=== PATIENT | female | born 1995 | race African-American/Black ===

== ENCOUNTER 2025-02-12 14:11 | Outpatient (CLI) | payer BC, SELFPAY | END 2025-02-12 14:12 | disposition home or self-care (01) | PROVIDERS: Visit Provider Registered Nurse | DX: Z34.91 Encounter for supervision of normal pregnancy, unspecified, first trimester (principal); O20.9 Hemorrhage in early pregnancy, unspecified; Z3A.12 12 weeks gestation of pregnancy | CPT/HCPCS: 87086; 87491; 87591 ==

== ENCOUNTER 2025-02-12 14:55 | Outpatient (CLI) | payer BC, SELFPAY ==
--- NOTE | 2025-02-12 14:45 | CRLHL7_ITS ---
For Patients: As a result of the Cures Act, medical imaging exams and procedure reports are released immediately into your electronic medical record. You may view this report before your referring provider. If you have questions, please contact your health care provider. OB ULTRASOUND INDICATION: Dating and viability. TECHNIQUE: Real time grayscale imaging of the fetus was performed. Transabdominal. LMP: 11/23/2024. BETTINA by LMP: 08/30/2025. GA: 11 w, 4 d. Previous US: No. CRL: 5.3 cm. 12 w 0 d. BETTINA: 08/27/2025. FHR: 169 BPM. Gestational sac: 5.5 cm. Appears within normal limits. Yolk sac: 5.0 mm. Appears within normal limits. Right ovary: 3.3 x 1.8 x 2.2 cm. Left ovary: 4.1 x 2.3 x 2.6 cm. CL. IMPRESSION: 1. Single living intrauterine measuring 12 weeks 0 days and sonographic due date 08/27/2025. 2. Subchorionic hemorrhage measures 2.1 x 1.8 x 1.7 cm. John Little M.D. Diagnostic Radiologist [email or web address] silva/Dictated by: John Little MD @ 02/15/2025 9:15:00 AM (Electronically Signed)
== END 2025-02-12 14:56 | disposition home or self-care (01) ==
LOC: US 14:55
PROVIDERS: Visit Provider Registered Nurse
DX: Z34.91 Encounter for supervision of normal pregnancy, unspecified, first trimester (principal); O20.9 Hemorrhage in early pregnancy, unspecified; Z3A.11 11 weeks gestation of pregnancy
CPT/HCPCS: 76801

== ENCOUNTER 2025-03-11 13:40 | Outpatient (CLI) | payer BC, SELFPAY | END 2025-03-11 13:41 | disposition home or self-care (01) | PROVIDERS: Visit Provider Midwife | DX: O09.92 Supervision of high risk pregnancy, unspecified, second trimester (principal); Z86.718 Personal history of other venous thrombosis and embolism; Z3A.15 15 weeks gestation of pregnancy | CPT/HCPCS: 81240; 81241; 81511; 83090; 85300; 85302; 85303; 85306; 85610; 86146; 86147 ==

== ENCOUNTER 2025-03-14 15:36 | Emergency (ER) | payer BC, SELFPAY ==
[2025-03-14 15:43] VITALS: BP 111/77; PULSE 82; RESP 16; TEMP 36.4; O2SAT 98; BMI 35.8
--- NOTE | 2025-03-14 16:13 | ED.GENADULT ---
HPI - General Adult General Date Seen: 03/14/25 Chief complaint: Vaginal Bleeding Stated complaint: vaginal bleeding () Time Seen by Provider: 03/14/25 16:12 History of Present Illness HPI narrative: 29-year-old female who has a history of pulmonary embolism after breast reduction surgery, also history of depression, endometriosis, PCOS, ovarian cysts, she was seen earlier this week by the nurse midwives for care on 03/11. According to those records she has a history of a single provoked venous thromboembolism and ACOG guidelines giverecommendation for surveillance without anticoagulation during her . It sounds like she is not on anticoagulation. She was given referral to heme Onc. Labs showed: blood type A+. INR 0.86. She had an ultrasound done had obstetrics, gynecology and infertility in a [facility] on 01/28/2025 that showed a single intrauterine with heart rate of 176. right ovary was polycystic. She had had care initially any [facility] but this was conceived naturally without IVF. She had all the routine care a couple months ago was negative for this vaginal infections and STDs. Her has been progressing normally. She and her had intercourse afternoon after intercourse she began having vaginal bleeding. She had bright red liquid blood without clots that probably total about few tbsp but hard to tell for sure. Still ongoing light vaginal bleeding. no purulent bleeding. No brown bleeding. No clots. She is not lightheaded. No fainting. Some mild pelvic cramping but not really worse than her normal round ligament pain. No fever. Urination normal. Bowel movements normal. She has a history of PE in the past after her breast surgery, and is not on any long-term anticoagulation. No chest pain, shortness of breath. Related Data Home Medications ?Medication ?Instructions ?Recorded ?Confirmed arginine 1,000 mg-B12 16.6 tab PO 02/12/25 03/11/25 mcg-folic acid 66.6 mcg-B6 3.3 mg tablet docosahexaenoic acid 200 mg mg PO 02/12/25 03/11/25 capsule ( DHA) Allergies Allergy/AdvReac Type Severity Reaction Status Date / Time house dust mite Allergy Mild Nasal Verified 03/14/25 15:42 Discharge enoxaparin (From Lovenox) Allergy Verified 03/14/25 15:42 tree nuts Allergy Mild hives Uncoded 03/11/25 13:28 [facility] Medical History (Updated 03/14/25 @ 19:27 by Dudley Fierro MD) Infertility PCOS (polycystic ovarian syndrome) ?E28.2 - Polycystic ovarian syndrome (ICD-10) History of venous thromboembolism ?Z86.718 - Personal history of other venous thrombosis and embolism (ICD-10) Depression ?F32.A - Depression, unspecified (ICD-10) Endometriosis ?N80.9 - Endometriosis, unspecified (ICD-10) Chlamydia ?A74.9 - Chlamydial infection, unspecified (ICD-10) Dyspareunia Ovarian cyst ?N83.209 - Unspecified ovarian cyst, unspecified side (ICD-10) Surgical History History of laparoscopy ?Z98.890 - Other specified postprocedural states (ICD-10) Status post breast reduction ?Z98.890 - Other specified postprocedural states (ICD-10) Family History Other Breast cancer Endometriosis Infertility Social History Smoking Status: Never smoker How often do you have a drink containing alcohol: never AUDIT-C Alcohol total score: 0 Non-prescribed substance use: denies use Exam Narrative: Exam Narrative: Constitutional: Appears well-developed and well-nourished. Alert. Conversant. Very pleasant. to tentatively at her side. Non toxic. HENT: Head: Atraumatic. Nose: Nose normal. Mouth/Throat: Oral mucosa is clear and moist. no trismus. Pharynx normal. Tonsils symmetric. No tonsillar enlargement, erythema, or exudate. Eyes: Conjunctivae normal. EOM normal. Pupils equal, round, and reactive to light. No scleral icterus. Neck: Normal range of motion. Neck supple. No tracheal deviation present. Cardiovascular: Normal rate, regular rhythm. No gallop. No friction rub. No murmur heard. Symmetric radial artery pulses Pulmonary/Chest: Effort normal. No stridor. No respiratory distress. No wheezes. No rales. No rhonchi . No tenderness. Abdominal: Soft. Bowel sounds normal. No distension. you had his uterus is enlarged with the fundus palpable just below the umbilicus consistent with her 16 week gestation. Uterus is nontender. Mild suprapubic and bilateral lower quadrant tenderness. No rebound. No guarding. No CVA tenderness Musculoskeletal: RUE: Normal range of motion. No tenderness. No deformity LUE: Normal range of motion. No tenderness. No deformity RLE: Normal range of motion. No edema. No tenderness. No deformity LLE: Normal range of motion. No edema. No tenderness. No deformity Neurological: Alert and oriented to person, place, and time. Normal strength. CN II-VII intact. No sensory deficit. GCS eye subscore is 4. GCS verbal subscore is 5. GCS motor subscore is 6. Normal coordination Skin: Skin is warm and dry. No rash noted. No pallor. Normal capillary refill. Psychiatric: Normal mood. Normal affect. Const: Vital Signs, click to edit/add: Vital Signs - 24 hr 03/14/25 15:43 03/14/25 18:01 Temperature 97.6 F 98.5 F Pulse Rate [Pulse Oximeter] 82 68 Respiratory Rate 16 18 Blood Pressure [Ri t Upper Arm] 111/77 99/72 Pulse Oximetry 98 99 Oxygen Delivery Me thod Room Air Room Air Course Vital Signs Vital signs: Initial Vital Signs Temperature 97.6 F 03/14/25 15:43 Temperature Source Temporal Artery Scan 03/14/25 15:43 Pulse Rate 82 03/14/25 15:43 Respiratory Rate 16 03/14/25 15:43 Blood Pressure 111/77 03/14/25 15:43 Blood Pressure Mean 88 03/14/25 15:43 Pulse Oximetry 98 03/14/25 15:43 Oxygen Delivery Method Room Air 03/14/25 15:43 Vital Signs Temperature 97.6 F 03/14/25 15:43 Pulse Rate 82 03/14/25 15:43 Respiratory Rate 16 03/14/25 15:43 Blood Pressure 111/77 03/14/25 15:43 Pulse Oximetry 98 03/14/25 15:43 Oxygen Delivery Method Room Air 03/14/25 15:43 Temperature 98.5 F 03/14/25 18:01 Pulse Rate 68 03/14/25 18:01 Respiratory Rate 18 03/14/25 18:01 Blood Pressure 99/72 03/14/25 18:01 Pulse Oximetry 99 03/14/25 18:01 Oxygen Delivery Method Room Air 03/14/25 18:01 Medical Decision Making MDM Narrative Medical decision making narrative: This female patient presents for evaluation of vaginal bleeding that began this afternoon after intercourse. She has a known 16 week IUP. This was conceived naturally without the use of IVF. Very low risk for heterotopic . She does have some mild lower pain but she has attributed that to her baseline abdominal pain due to being .. I considered a broad differential including ectopic , ovarian cyst, UTI, pyelonephritis, subchorionic hemorrhage, uterine bleeding, active miscarriage, constipation, etc. Non gynecologic causes considered included , appendicitis, cholecystitis, volvulus, intraabdominal abscess, among others. In this patient, there are no signs of serious etiologies of abdominal pain. At this point and on the think she needs further workup with CT or MRI The patient's primary concern was not her abdominal pain but rather the bleeding that started this afternoon. The workup here suggests threatened miscarriage. At this point we have a viable IUP with a normal heart rate appropriate for dates. There is not a subchorionic hemorrhage. At this point, patient is hemodynamically stable, hemoglobin is reassuring, and bleeding is not predicted to become life threatening. Differential here would also include cervical bleeding because of intercourse or possible vaginal laceration. Patient her deny any pain with the intercourse or high risk for vaginal trauma. The patient is eager to get home because she has to care for her other children. Therefore will hold off on pelvic exam here in the ER. Plan is home, close follow-up with OB, threatened miscarriage precautions, and return to ED for worsening pain, heavy vaginal bleeding (more than 1 pad soaked every hour). She will follow-up with her OB team for recheck within 1-2 days. Return precautions reviewed. Questions were answered. Lab Data Labs: Lab Results 03/14/25 Range/Units 16:33 WBC 6.41 (4.50-11.00) K/uL RBC 3.82 L (4.00-5.20) m/uL Hgb 10.8 L (12.0-16.0) gm/dL Hct 32.8 L (33.0-51.0) % MCV 86 (80-100) fL MCH 28 (26-34) pg MCHC 33 (32-36) gm/dL RDW Coeff of Carla 14.3 (11.5-15.5) % Plt Count 205 (140-440) K/uL Neut % (Auto) 69.8 (42.0-72.0) % Lymph % (Auto) 19.3 L (20-44) % [place] % (Auto) 9.2 (0.0-11.0) % Eos % (Auto) 0.6 (0.0-7.0) % Baso % (Auto) 0.2 (0.0-3.0) % Neut # (Auto) 4.47 (1.7-7.0) K/uL Lymph # (Auto) 1.20 (0.90-2.90) K/uL [place] # (Auto) 0.60 (0.00-0.90) K/UL Eos # (Auto) 0.04 (0.00-0.50) K/uL Baso # (Auto) 0.01 (0.00-0.30) K/uL Abs Immat Gran (auto) 0.06 (0.00-0.30) K/uL Imm/Tot Granulo (auto) 0.9 % HCG, Quant 57452.00 mIU/mL Imaging Data US pelvis: Attestation: I have reviewed the pertinent imaging results. Radiologist's impression: IMPRESSION: 1. Single living intrauterine gestation in variable position with heart rate 145 beats per minute. 2. Anterior placenta without evidence of previa or abruption. The cervix is closed. Discharge Plan Discharge Clinical Impression: , threatened Patient Disposition: Home, Self-Care Condition: Stable Instructions: Threatened Miscarriage (ED) Additional Instructions: As we discussed, so far your blood tests and your pelvic ultrasound look good. However this bleeding still raises the threat of a miscarriage. Monitor symptoms carefully. If you have worsening bleeding or worsening pelvic cramping, lightheadedness, fever, or in any worsening symptoms, please contact your OB team or return to the ER immediately. Even if your bleeding stops and you are getting better, please recheck with your OB team in the next 1-3 days. Prescriptions: No Action DHA 200 mg capsule PO [id number] [id number] 1,000 mg-16.6 mcg-66.6 mcg tablet PO Follow Up/Referrals: Provider,Not a Local [Primary Care Provider] - Stand Alone Forms: MyHealth Info Instructions
--- NOTE | 2025-03-14 16:25 | CRLHL7_ITS ---
For Patients: As a result of the Century Cures Act, medical imaging exams and procedure reports are released immediately into your electronic medical record. You may view this report before your referring provider. If you have questions, please contact your health care provider. INDICATION: Vaginal bleeding after intercourse 16 week . COMPARISON: OB ultrasound 02/12/2025. TECHNIQUE: Ultrasound OB pelvis limited transabdominal with real time grayscale imaging and color Doppler analysis. FINDINGS: Sonographic imaging demonstrates a single living intrauterine gestation. The fetus has a regular cardiac rate of 145 beats per minute. The fetus has a variable orientation. The placenta lies anteriorly without evidence of placenta previa or abruption. The inferior placental edge is located 4.4 cm from the internal cervical os. The cervix is closed and measures 4.5 cm in length. Amniotic fluid volume appears normal with deepest pocket measuring 4.8 cm. IMPRESSION: 1. Single living intrauterine gestation in variable position with heart rate 145 beats per minute. 2. Anterior placenta without evidence of previa or abruption. The cervix is closed. Dictated by Noelle Perez MD @ 03/14/2025 7:19:22 PM (Electronically Signed)
[2025-03-14 16:42] LABS: Basophils Absolute Auto 0.01 K/uL (0.00-0.30); Basophils Percent Auto 0.2 % (0.0-3.0); Eosinophils Absolute Auto 0.04 K/uL (0.00-0.50); Eosinophils Percent Auto 0.6 % (0.0-7.0); Hematocrit 32.8 % (33.0-51.0); Hemoglobin* 10.8 gm/dL (12.0-16.0); Immature Granulocytes Abs Auto 0.06 K/uL (0.00-0.30); Immature Granulocytes Pct Auto 0.9 %; Lymphocytes Percent Auto 19.3 % (20-44); Mean Corpuscular HGB Conc 33 gm/dL (32-36); Mean Corpuscular Hemoglobin 28 pg (26-34); Mean Corpuscular Volume 86 fL (80-100); Monocytes Percent Auto 9.2 % (0.0-11.0); Neutrophils Absolute Auto 4.47 K/uL (1.7-7.0); Neutrophils Percent Auto 69.8 % (42.0-72.0); Platelet Count* 205 K/uL (140-440); RDW Coefficient of Variation % 14.3 % (11.5-15.5); Red Blood Count 3.82 m/uL (4.00-5.20); White Blood Count* 6.41 K/uL (4.50-11.00)
[2025-03-14 16:45] LABS: Slide Review Reflex No
--- OUTSIDE RECORDS SUMMARY | 2025-03-14 17:57 | XMS_ITS | Clinical Summary ---
Author Organization [facility] Address [address] [place] [address] Care Team Providers Care Exercise Rider Name Role Phone Maria Del Carmen Whitt APRN C.N.P. Primary Care Provide r Source Comments Patient records contain information from all sites at [facility]. For routine questions regarding patient records, call [phone] during business hours, M-F 8:00 AM - 5:00 PM Central Time. Record requests for emergency care only can be directed to [phone] at any time.[facility] Allergies Active Allergy Reactions Criticality Noted Date Comments Enoxaparin Hives (Reselect Reaction) High 10/24/2020 Itching and urticaria spreading from injection sites House Dust Mite Itching 12/05/2011 Peanut Itching 12/05/2011 Medications * This document contains information received from the source organization and may not represent a complete record from that organization. dextroamphetamin e-amphetamine (ADDERALL) 30 mg tablet Take 30 mg by mouth 2 (two) times a day. 1 Active aspirin-acetamin ophen-caffeine (EXCEDRIN MIGRAINE) 250-250-65 mg per tablet Take 2 tablets by mouth every 6 (six) hours as needed for pain. Active letrozole (Femara) 2.5 mg tablet 4 Active albuterol 90 mcg/actuation inhalerIndicatio ns:Asthma Mild Intermittent (HCC) Inhale 2 puffs every 4 (four) hours as needed for wheezing. 18 g 2 08/30/202 4 Active tirzepatide (Zepbound) 2.5 mg/0.5 mL injection penIndications:M orbid Obesity Body Mass Index 40.0-44.9 Adult (HCC) Inject 2.5 mg under the skin every 7 (seven) days. 2 mL 4 Active Additional Information Patient not taking.Reported on 02/05/2025 buPROPion XL (Wellbutrin XL) 150 mg 24 hr tabletIndication s:Morbid Obesity Body Mass Index 40.0-44.9 Adult (HCC) Take 1 tablet (150 mg total) by mouth every morning. 90 tablet 3 4 Active Additional Information Patient not taking.Reported on 02/05/2025 sertraline (Zoloft) 50 mg tablet Take 50 mg by mouth daily. Active Active Problems Problem Noted Date Diagnosed Date Asthma Mild Intermittent 09/22/2024 Polycystic Ovary Syndrome 06/21/2020 Depressive Disorder 06/21/2020 Migraine Headache 02/27/2012 Attention Deficit Hyperactive Disorder 6 Comments Yes Resolved Problems Problem Noted Date Diagnosed Date Resolved Date Morbid Obesity Body Mass Ind ex 40.0-44.9 Adult 06/13/2022 03/12/2024 Scleroderma 09/13/2000 03/12/2024 Encounters * This document contains information received from the source organization and may not represent a complete record from that organization. Date Type Department Care Team Description 02/05/2025 2:00 PM CDT Office Visit Department of Family Medicine, [facility], in [address] [phone] Gregg Garibay P.A.-C. Paronychia Finger Right (Primary Dx) 01/26/2025 2:02 PM CDT - 01/26/2025 11:59 PM CDT Hospital Encounter Department of Laboratory Medicine in [address] [phone] Leanne Vasquez M.D. Encounter For Supervision Of Normal Unspecified Trimester (HCC) Discharge Disposition: Home or Self Care from Last 3 Months Immunizations Immunization Administration Dates Next Due 4vHPV (discontinued) 01/12/2009,09/07/2008,07/07 DTP / Hib 1995,1995 DTaP (Infanrix, Tripedia) 04/25/2000,12/1996,1995,1994 HepA Pediatric/Adolescent 07/07/2008,06/12/2006 HepB Adult 01/22/2017 HepB, Unspecified 1995,1995,05/23/19 95 Hib (PRP-T) (ACTHIB, HIBERIX) 06/05/1996 Hib, Unspecified 1995,1995 IPV 04/25/2000,06/05/1996 Influenza TIV (IM) 07/29/2012,07/20/2009, 006 Influenza, Injectable, Quadrivalent 11/18/2013 Influenza, Seasonal, Injectable 07/29/2012,07/20,09/27/2006 MCV4 (Menactra)(Discontinued) 07/07/2008 MCV4 (Menveo) 11/18/2013 MMR 04/25/2000,06/05/1996 OPV 06/05/1996,1995,1995 PPSV23 09/26/2016 Polio, Unspecified 06/05/1996,1995, 995 Tdap 12/23/2012,12/03/2012,06/12/2006 influenza trivalent LAIV (Na kishore) (2 years through 49 years) 09/07/2008 influenza vaccine quad (FLUZONE/FLUARIX) (6 months and older)(PF) 07/23/2017,06/20/2016,08/24/2015,2013,09/07/2008 Family History Medical History Relation Name Comments Hypertension Father Alcohol abuse Mother Juan Garrido Anxiety disorder Mother Juan Garrido Depression Mother Juan Garrido Relation Name Status Comments Brother Alive Father Alive Mother Juan Garrido Alive Social History Tobacco Use Types Packs/Day Years Used Date Smoking Tobacco: Former Cigarettes Q uit: 2020 Smokeless Tobacco: Never Tobacco Cessation:Counseling Given: Not Answered Alcohol Use Standard Drinks/Week Comments Not Currently 0 (1 standard drink = 0.6 oz pur e alcohol) 1-2/ month [facility] Utilities Answer Date Recorded In the past 12 months has th e electric, gas, oil, or water company threatened to shut off services in your home? No 06/26/2024 Humiliation, Afraid, Rape, and Kick questionnair e Answer Date Recorded Within the last year, have y ou been afraid of your partner or ex-partner? No 10/23/2022 Within the last year, have y ou been humiliated or emotionally abused in other ways by your partner or ex-partner? No Within the last year, have y ou been kicked, hit, slapped, or otherwise physically hurt by your partner or ex-partner? No 10/23/2022 Within the last year, have y ou been raped or forced to have any kind of sexual activity by your partner or ex-partner? No 10/23/2022 Social Connection and Isolation Panel [NHANES] A nswer Date Recorded In a typical week, how many times do you talk on the phone with family, friends, or neighbors? Once a week 10/23/20 How often do you get togethe r with friends or relatives? Patient declined 10/23/2022 How often do you attend chur ch or zoroastrianism services? Patient declined 10/23/2022 Do you belong to any clubs o r organizations such as sabianism groups, unions, fraternal or athletic groups, or school groups? No 10/23/2022 How often do you attend meet ings of the clubs or organizations you belong to? Patient declined 10/23/2022 Are you , , di vorced, , never , or living with a partner? Living with partner 10/23/2022 AUDIT-C Answer Date Recorded Q1: How often do you have a drink containing alc ohol? Monthly or less 10/23/2022 Q2: How many drinks containi ng alcohol do you have on a typical day when you are drinking? 1 or 2 10/23/2022 Q3: How often do you have si x or more drinks on one occasion? Never 10/23/2022 Overall Financial Resource Strain (CARDIA) Answe r Date Recorded How hard is it for you to pa y for the very basics like food, housing, medical care, and heating? Patient declined 10/23/2022 PHQ-2 Answer Date Recorded PHQ-2 Score 4 06/26/2024 [facility] Occupational Stress Questionnaire Answer Date Recorded Do you feel stress - tense, restless, nervous, or anxious, or unable to sleep at night because your mind is troubled all the time - these days? To some extent 10/23/2022 Exercise Vital Sign Answer Date Recorde d On average, how many days pe r week do you engage in moderate to strenuous exercise (like a brisk walk)? 3 days 06/26/2024 On average, how many minutes do you engage in exercise at this level? 40 min 06/26/2024 Hunger Vital Sign Answer Date Recorded Within the past 12 months, y ou worried that your food would run out before you got the money to buy more. Never true 06/26/20 24 Within the past 12 months, t he food you bought just didn't last and you didn't have money to get more. Never true 06/26/2024 PRAPARE - Transportation Answer Date Re corded In the past 12 months, has l ack of transportation kept you from medical appointments or from getting medications? No 05/30 In the past 12 months, has l ack of transportation kept you from meetings, work, or from getting things needed for daily living? No 06/26/2024 Depression Answer Date Recor ded PHQ-9 Total Score (max 27) 11 06/26 Nutrition Answer Date Recorded On average, how many serving s of fruits and vegetables do you eat per day (serving size is equal to 1 cup or approximately the size of a tennis ball)? 0-2 06/26/2024 Dental Answer Date Recorded Dental: Regular Dentist Yes 09/22/20 Employment Answer Date Recorded Employment status Employed and actively working without restrictions 06/26/2024 Housing Stability Answer Date Recorded What is your living situation today? I have a [facility] [address] to live 06/26/2024 Education Answer Date Recorded What is the highest level of school you have completed or the highest degree you have received? 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 Legal Sex Female 8:05 AM EQUIPMENT SERVICE LEAD Gender Identity Female 09/22/2021 9:30 AM EQUIPMENT SERVICE LEAD Sexual Orientation Straight 09/22/2021 9: 30 AM EQUIPMENT SERVICE LEAD Last Filed Vital Signs Vital Sign Reading Time Taken Comments Blood Pressure 121/76 02/05/2025 1:53 PM CDT Pulse 71 02/05/2025 1:53 PM CDT Temperature 36.1 C (97 F) 02/05/2025 1:53 PM CDT Respiratory Rate 20 02/05/2025 1:53 PM CDT Oxygen Saturation 100% 06/10/2024 9:00 PM CDT Inhaled Oxygen Concentration - - Weight 83.7 kg (184 lb 10.2 oz) 02/05/2025 1:53 PM CDT Height 157.5 cm (5' 2.01) 03/12/2024 8:57 AM CD T Body Mass Index 33.76 03/12/2024 8:57 AM CDT Plan of Treatment Health Maintenance Due Date Last Done Comments HIV Screening 1995 Hepatitis C Screening 1995 COVID-19 Vaccine (#1) 2000 Pneumococcal vaccine (0-49 y ears) (2 of 2 - PCV) 09/26/2017 09/26/2016 DTaP,Tdap,and Td Vaccines (8 - Td or Tdap) 12/23/2022 12/23/2012, 12/03/2012, 06/12/2006, Additional history exists Influenza Vaccine (#1) 2024 7, 06/20/2016, 08/24/2015, Additional history exists Asthma Action Plan 09/22/2024 Asthma Control Test Questionnaire 09/22/2024 Asthma Management/Exacerbati on Questionnaire (AMQ/AEQ) 09/22/2024 Depression Monitoring (PHQ-9) 10/26/2024 06/26/2024 Depression Monitoring (PHQ-9 for quality tracking) 10/28/2024 Cervical/Vaginal Cancer Screening 2026 2023, 01/14/2019, 07/01/2012 RSV vaccine - (32-3 6 weeks) or 60+ years (1 - 1-dose 75+ series) 2070 IPV Vaccines Completed 04/25/2000, 0806/1996, 06/05/1996, Additional history exists HPV Vaccines Completed 01/12/2009, 08/28, 07/07/2008 Hepatitis B Vaccines Completed 01/22/2017, 1995, 1995, Additional history exists Procedures Procedure Name Priority Date/Time Associated Diagnosis Comments PROGESTERONE, S Routine 01/26/2025 2:09 PM CDT Encounter For Supervision Of Normal Unspecified Trimester (HCC) HUMAN CHORIONIC GONADOTROPIN (HCG), MARITZA, Routine 01/26/2025 2:09 PM CDT Encounter For Supervision Of Normal Unspecified Trimester (HCC) THINPREP SCREEN HPV REFLEX Routine 2023 12:15 PM CDT Pap Smear Examination from Last 3 Months or Most Recently Relevant to Health Maintenance Results * Progesterone Level (01/26/2025 2:09 PM CDT) Progesterone, S 29 See Note* ng/mL 01/27/2025 1:13 PM CDT DTL Comment: Reference intervals are central 90th % of healthy population. Follicular phase: <=0.89 ng/mL Ovulation: <=12 ng/mL Luteal phase: 1.8-24 ng/ml Post-menopausal: <0.20 ng/mL 1st Trimester: 11-44 ng/mL 2nd Trimester: 25-83 ng/mL 3rd Trimester: 58-214 ng/mL Blood (Blood, Venous) 01/26/2025 2:09 PM CDT 01/27/2025 12:45 PM CDT us Leanne Vasquez M.D. LAB BLOOD ADD-ON Final Resul t [facility] [address] [place] [address], [facility] DTL [facility] [address] [place] [address] * (ABNORMAL) hCG (Human Chorionic Gonadotropin), Quantitative, (01/26/2025 2:09 PM CDT) HCG, Quantitative, , P 324960(H) <5 IU/L 01/27/2025 12:34 PM CDT [facility] Blood (Blood, Venous) 01/26/2025 2:09 PM CDT 01/26/2025 5:46 PM CDT us Leanne Vasquez M.D. LAB BLOOD ADD-ON Final Resul t Performing Organization Address City/[facility]/ZIP Co de Phone Number [facility] [address] [place] [address], [facility] [place] [address] [place] [address] * ThinPrep Screen HPV Reflex (2023 12:15 PM CDT) 05/15/2023 10:07 AM CDT [facility] Report electronically signed by Klaus Carrasco MD I verify that I have examined all relevant slides/materials for the specimen(s) and rendered or confirmed the diagnosis. 05/15/2023 10:07 AM CDT [facility] Gross Description Received specimen in a ThinPrep vial. 05/15/2023 10:07 AM CDT [facility] Pap Test Source Cervical/Endocervi lee 05/15/2023 10:07 AM CDT [facility] Hormone Therapy/Contracep tives None/Not known 05/15/2023 10:07 AM CDT [facility] Interpretation Cervical/Endocervi lee (ThinPrep): Satisfactory for Evaluation Negative for Intraepithelial Lesion or Malignancy Reactive cellular changes associated with: Reparative or inflammatory changes 05/15/2023 10:07 AM CDT [facility] Thin Prep Vial (Cervix/Endocerv ix) 2023 12:15 PM CDT 05/09/2023 7:26 AM CDT us Carrie Machado APRN CCheriseN.P., M.S.N. LAB PAP PATH DX ORDERABLES Final Result Performing Organization Address City[facility]/ZIP Co de Phone Number [facility] [address] [place] [address], [place] [facility] [address] [facility] [address] [place] [address] from Last 3 Months or Most Recently Relevant to Health Maintenance Insurance [facility] Care Teams Exercise Rider Relationship Specialty Start Date End Date Maria Del Carmen Whitt APRN, C.N.P. [address] [place] [address] PCP - General Family Medicine 03/12/24
--- OUTSIDE RECORDS SUMMARY | 2025-03-14 17:57 | XMS_ITS | Clinical Summary ---
Author Organization [facility] Address [address] [place] [id number] Care Team Providers Care Nba Player Name Role Phone Clinic, [facility] Primary Care Pro vider Unavailable Allergies Active Allergy Reactions Criticality Noted Date Comments Dust Mites Itching 12/05/2011 Peanut Itching 12/05/2011 Medications levonorgestrel intrauterine device (MIRENA) 20 mcg/24 hour (5 years) IUD Inject 1 Device intrauterine one time. 1 Device 0 3 Active DEXTROAMPHETAMIN E/AMPHETAMINE (ADDERALL ORAL) Take 60 mg by mouth once daily. 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 Immunizations Immunization Administration Dates Next Due DTaP 04/25/2000, 7,1995,09/04 HIB PRP-T (ActHIB,Hiberix) 06/05/1996 Hepatitis A (Peds) 07/07/2008,06/12/2006 Hepatitis B (Peds) 1995,1995, 995 Hib Conjugate, Unspecified 1995,1995 Human Papilloma Virus Vaccine 01/12/2009, 008,07/07/2008 Inactivated Polio Vaccine 04/25/2000 Influenza, IIV3 (Age >=3 years) 07/29/2012,07/20,09/27/2006 Influenza,LAIV4 Live Intrana kishore (Flumist) 09/07/2008 MMR 04/25/2000,06/05/1996 Meningococcal Vaccine (Menactra) 07/07/2008 Oral Polio Vaccine 06/05/1996,1995, 995 Tdap 12/03/2012,06/12/2006 Family History Medical History Relation Name Comments Allergies Father Other Maternal Grandfather kidney transplant Heart Disease Maternal Grandmother Heart Disease Mother Cancer Other 1 paternal great granfather Stroke Other 2 unspecified Diabetes Other 3 paternal great grandfather Diabetes Paternal Grandfather Relation Name Status Comments Father Maternal Grandfather Maternal Grandmother Mother Other 1 Other 2 Other 3 Paternal Grandfather Social History Tobacco Use Types Packs/Day Years Used Date Smoking Tobacco: Every Day Cigarettes Last attempted to quit: 08/16/2011 Smokeless Tobacco: Never Tobacco Cessation:Ready to Q uit: No; Counseling Given: Yes Comments:1 Black and mild Alcohol Use Standard Drinks/Week Comments Yes 1 (1 standard drink = 0.6 oz pur e alcohol) Rarely Comments No Sex and Gender Information Value Date Recorded Sex Assigned at Not on file 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 Please review and update details. Last Filed Vital Signs Vital Sign Reading Time Taken Comments Blood Pressure 123/84 01/09/2017 5:35 PM CDT Pulse 54 01/09/2017 5:35 PM CDT Temperature 36.8 C (98.2 F) 01/09/2017 5:35 PM CDT Respiratory Rate 16 01/09/2017 5:35 PM CDT Oxygen Saturation 96% 01/09/2017 5:35 PM CDT Inhaled Oxygen Concentration - - Weight 88.9 kg (196 lb) 01/09/2017 5:35 PM CDT Height 157.5 cm (5' 2) 01/09/2017 5:35 PM CDT Body Mass Index 35.85 01/09/2017 5:35 PM CDT Plan of Treatment Health Maintenance Due Date Last Done Comments Depression screening for age 12+ 2007 Hepatitis C screening for age 18-79 2013 Pap test for age 21-65 2016 07/01/2012, 2008 BMI (ht and wt on same day) for age 18+ 01/09/2018 01/09/2017, 01/06/2017, 11/07/2015, Additional history exists Tetanus booster 12/03/2022 12/03/2012, 06/12/2006 COVID-19 vaccine series ( season) 2024 Influenza Vaccine (Season Ended) 2025 07/29/2012, 07/20/2009, 09/07/2008, Additional history exists HIV for age 15-65 Completed 06/04/2012 Tdap Completed 12/03/2012, 06/12/2006 Pneumococcal series for age 6-49 Aged Out No longer eligible based on patient's age to complete this topic Procedures Procedure Name Priority Date/Time Associated Diagnosis Comments HOME HEALTH CLINICAL SUPERVISOR THIN PREP PAP SCREEN IMAGED Routine 07/01/2012 6:02 PM CDT Supervision of normal first (HC) ANTI HIV 1/2 Routine 06/04/2012 10:14 AM CDT examination or test, unconfirmed from Last 3 Months or Most Recently Relevant to Health Maintenance Results * HOME HEALTH CLINICAL SUPERVISOR THIN PREP PAP SCREEN IMAGED (07/01/2012 6:02 PM CDT) CYTOLOGY CYTOPATHOLOGY REPORT [facility] Status: Final Status [id number] CLINICAL INFORMATION Last Date of LMP : Last Pap Date :04/28/2009 Last Pap Result :NIL ABN [place]/Bx Past 5 YRS :None Hormone Usage :BCP/OCP/Patch/Rin g Menstrual Status :Regular Periods [place]/Bx done today :No Additional Information :None given HPV Request :HPV if ASCUS SPECIMEN SOURCE :Cervical/vaginal ThinPrep Vial, screening SPECIMEN ADEQUACY :Satisfactory for evaluation No endocervical component seen in a patient. INTERPRETATION/RES ULT Negative for intraepithelial lesion or malignancy (NIL) Cytology 1st Screener :brian Signed by :brian This specimen was screened by the FDA approved ThinPrep Imaging System and manually reviewed. NOTE: The Pap test is a screening technique, not a diagnostic procedure. It is used primarily to screen for squamous cancers and precursor lesions. Published studies have shown that it is subject to both false negative and false positive results. The pap test should not be used as the sole means to diagnose or exclude pre-malignant and malignant lesions. COLLECTED:07/01/12 ACCESSIONED: 07/02/12 SIGNED: 07/04/12 [facility] PAP [place] CODE NIL [facility] Tissue specimen (specimen) (Cervical/Vagina l) 07/01/2012 6:02 PM CDT 07/01/2012 6:01 PM CDT us Lizzie Menon PATHOLOGY/CYTOLOGY Final Result [facility] [place] ZIP [id number] [address] [place] [address] * ANTI HIV 1/2 (06/04/2012 10:14 AM CDT) ANTI HIV 1/2 Non-reacti ve [facility] Blood specimen (specimen) BLOOD SPECIMEN / Unknown 06/04/2012 10:14 AM CDT 06/04/2012 10:06 AM CDT us Lizzie Menon SEND OUTS Final Result [facility] INTERNAL ZIP [id number] [place] [id number] from Last 3 Months or Most Recently Relevant to Health Maintenance Insurance [facility]ARE [place] [facility] [place] Advance Directives * Full Code (Latest Code Status on File) Date Activated Date Inactivated Comments 01/30/2013 6:18 AM 02/01/2013 1:50 PM * Full Code Date Activated Date Inactivated Comments 01/30/2013 1:27 AM 01/30/2013 6:18 AM * Full Code Date Activated Date Inactivated Comments 01/30/2013 1:09 AM 01/30/2013 1:27 AM * Full Code Date Activated Date Inactivated Comments 01/29/2013 7:21 AM 01/29/2013 12:45 PM * Full Code Date Activated Date Inactivated Comments 10/07/2012 6:24 PM 10/07/2012 10:52 PM Care Teams Nba Player Relationship Specialty Start Date End Date Maurilio [facility] PCP - General 01/06/17
--- OUTSIDE RECORDS SUMMARY | 2025-03-14 17:57 | XMS_ITS | Encounter Summary ---
Author Organization [facility] Address [address] [place] [address] Care Team Providers Care Sanitary Landfill Operator Name Role Phone Maria Del Carmen Whitt APRN C.N.P. Primary Care Provide r Reason for Visit * Reason Comments Other inflammation in fing er for past 3 weeks on an off * Appointment Request (Routine) - Closed Specialty Diagnoses / Procedures Referred By Dean t Referred To Contact Family Medicine Referral ID Status Reason Start Date Expiration Date Visits Re quested Visits Authorized [id number] Closed 02/04/2025 05/07/2026 1 1 Encounter Details Date Type Department Care Team (Late st Contact Info) Description 02/05/2025 2:00 PM CDT Office Visit [facility] in [place], [place] [address] [place] [phone] Gregg Garibay, PCheriseAPiyush. [address] [place] [phone] Paronychia Finger Right (Primary Dx) Social History Tobacco Use Types Packs/Day Years Used Date Smoking Tobacco: Former Cigarettes Q uit: 2020 Smokeless Tobacco: Never Tobacco Cessation:Counseling Given: Not Answered Alcohol Use Standard Drinks/Week Comments Not Currently 0 (1 standard drink = 0.6 oz pur e alcohol) 1-2/ month [facility] Utilities Answer Date Recorded In the past 12 months has [employer], [employer], or [employer] threatened to shut off services in your [...] declined 10/23/2022 How often do you attend [facility] or restoration services? Patient declined 10/23/2022 Do you belong to any clubs o r organizations such as baptist groups, unions, fraternal or athletic groups, or [...] Date Recorded PHQ-2 Score 4 06/26/2024 [facility] - Occupational Stress Questionnaire Answer Date Recorded [...] Date Recorded Dental: Regular Dentist Yes 09/22/20 21 Employment Answer Date Recorded Employment status Employed and actively working without restrictions 06/26/2024 Housing Stability Answer Date Recorded What is your living situation today? I have a [facility] place to live 06/26/2024 Education Answer Date Recorded What is the highest level of school you have completed or the highest degree you have received? 12th grade 09/22/2021 Comments Yes Sex and Gender Information Value Date Recorded Sex Assigned at Female 09/22/2021 9:30 AM SUPERVISOR SPRING UP Legal Sex Female 8:05 AM SUPERVISOR SPRING UP Gender Identity Female 09/22/2021 9:30 AM SUPERVISOR SPRING UP Sexual Orientation Straight 09/22/2021 9: 30 AM SUPERVISOR SPRING UP documented as of this encounter Last Filed Vital Signs Vital Sign Reading Time Taken Comments Blood Pressure 121/76 02/05/2025 1:53 PM CDT Pulse 71 02/05/2025 1:53 PM CDT Temperature 36.1 C (97 F) 02/05/2025 1:53 PM CDT Respiratory Rate 20 02/05/2025 1:53 PM CDT Oxygen Saturation - - Inhaled Oxygen Concentration - - Weight 83.7 kg (184 lb 10.2 oz) 02/05/2025 1:53 PM CDT Height - - Body Mass Index 33.76 03/12/2024 8:57 AM CDT documented in this encounter Progress Notes * Gregg Garibay P.A.-C. - 02/05/2025 2:00 PM CDT SUBJECTIVE CHIEF COMPLAINT / REASON FOR VISIT Sarah Garrido is a 29 y.o. female who presents for evaluation of Other (inflammation in finger for past 3 weeks on an off). HISTORY OF PRESENT ILLNESS Sarah presents today with complaints of inflammation of her right third finger. This has been present for the last couple weeks. It seems like it was worse and then it got better now it is worse again. OBJECTIVE Vitals: 02/05/25 1353 BP: 121/76 BP Location: Left arm Patient Position: Sitting Cuff Size: Large Pulse: 71 Resp: 20 Temp: 36.1 ??C TempSrc: Temporal Weight: 83.7 kg Body mass index is 33.76 kg/m??. PHYSICAL EXAMINATION In general she appears in no acute distress Right third finger shows some discomfort to palpation along the base of the fingernail there is a little swelling but there is no obvious paronychia. ASSESSMENT / PLAN #1 Paronychia Finger Right Most likely this is an infection. We talked about different treatment options. She really wants to avoid antibiotics because she is . I think this is reasonable but I am going to have her go home and soak this on a regular basis in some warm soapy water. If this does develop an area of exudate it maybe able to be removed with a small incision. She is going to continue soaking and if her symptoms worsen or do not completely resolve she will let us know. Gregg Roethler, P.A.-C. documented in this encounter Plan of Treatment Not on file documented as of this encounter Visit Diagnoses Diagnosis Paronychia Finger Right- Primary documented in this encounter Additional Health Concerns Assessment Noted Time PHQ-9 Depression Total Score: 11 024 12:50 PM CDT documented as of this encounter Care Teams Sanitary Landfill Operator Relationship Specialty Start Date End Date Maria Del Carmen Whitt APRN, C.N.P. [address] [place] [address] PCP - General Family Medicine 03/12/24 documented as of this encounter
[2025-03-14 18:01] VITALS: BP 99/72; PULSE 68; RESP 18; TEMP 36.9; O2SAT 99
== END 2025-03-14 19:41 | disposition home or self-care (01) ==
PROVIDERS: Emergency Provider Emergency Medicine
DX: O20.0 Threatened abortion (principal); Z3A.16 16 weeks gestation of pregnancy
CPT/HCPCS: 36415; 76815; 84702; 85025; 99283; 99284

== ENCOUNTER 2025-03-18 14:14 | Outpatient (CLI) | payer BC, SELFPAY | END 2025-03-18 14:15 | disposition home or self-care (01) | PROVIDERS: Visit Provider Advanced Practice Midwife | DX: R35.0 Frequency of micturition (principal); N23 Unspecified renal colic | CPT/HCPCS: 87086 ==

== ENCOUNTER 2025-03-31 13:12 | Outpatient (CLI) | payer BC, SELFPAY | END 2025-03-31 13:13 | disposition home or self-care (01) | LOC: US 13:12 | PROVIDERS: Visit Provider Midwife | DX: O09.92 Supervision of high risk pregnancy, unspecified, second trimester (principal); Z86.718 Personal history of other venous thrombosis and embolism; Z3A.18 18 weeks gestation of pregnancy | CPT/HCPCS: 76811; 85610; 85613; 85730 ==

== ENCOUNTER 2025-04-12 09:07 | Outpatient (CLI) | payer BC, SELFPAY | END 2025-04-12 09:08 | disposition home or self-care (01) | LOC: RAD 09:10 | PROVIDERS: PCP Midwife; Visit Provider Midwife | DX: Z87.74 Personal history of (corrected) congenital malformations of heart and circulatory system (principal) | CPT/HCPCS: 93306 ==

== ENCOUNTER 2025-04-28 14:24 | Outpatient (CLI) | payer BC, SELFPAY | END 2025-04-28 14:25 | disposition home or self-care (01) | LOC: US 14:25 | PROVIDERS: Visit Provider Midwife | DX: O99.212 Obesity complicating pregnancy, second trimester (principal); Z3A.22 22 weeks gestation of pregnancy | CPT/HCPCS: 76816 ==

== ENCOUNTER 2025-05-11 10:42 | Emergency (ER) | payer BC, SELFPAY ==
--- OUTSIDE RECORDS SUMMARY | 2025-04-05 09:45 | XMS_ITS | Encounter Summary ---
Author Organization [facility] Address [address] [place] [id number] Care Team Providers Care Linotype Machinist Apprentice Name Role Phone Maria Del Carmen Whitt APRN C.N.P. Primary Care Provide r Reason for Visit * Reason Onset Date Comments Pre-visit Intake 04/05/2025 * Appointment Request (Routine) - Authorized Specialty Diagnoses / Procedures Referred By Dean t Referred To Contact Vascular Medicine Referral ID Status Reason Start Date Expiration Date V isits Requested Visits Authorized [id number] Authorized 03/15/2025 06/15/2026 1 1 Encounter Details Date Type Department Care Team (Latest Contact Info) Description 04/05/2025 9:45 AM CDT Clinical Communication Virtual Review in [place], [place] [address] [place] [address] Pre-visit Intake Social History Tobacco Use Types Packs/Day Years Used Date Smoking Tobacco: Former Cigarettes Q uit: 2020 Smokeless Tobacco: Never Alcohol Use Standard Drinks/Week Comments Not Currently 0 (1 standard drink = 0.6 oz pur e alcohol) 1-2/ month [facility] Utilities Answer Date Recorded In the past 12 months has e electric, gas, oil, or water company [...] by your partner or ex-partner? No 10/23/2022 Hunger Vital Sign Answer Date Recorded Within [...] PHQ-9 Total Score (max 27) 11 06/26 Housing Stability Answer Date Recorded What is your living situation today? I have a [employer] place to live 06/26/2024 Education Answer Date Recorded What is the highest level of school you have completed or the highest degree you have received? 12th grade 09/22/2021 Comments Yes Sex and Gender Information Value Date Recorded Sex Assigned at Female 09/22/2021 9:30 AM HOTEL NIGHT AUDITOR Legal Sex Female 8:05 AM HOTEL NIGHT AUDITOR Gender Identity Female 09/22/2021 9:30 AM HOTEL NIGHT AUDITOR Sexual Orientation Straight 09/22/2021 9: 30 AM HOTEL NIGHT AUDITOR documented as of this encounter Plan of Treatment Not on file documented as of this encounter Visit Diagnoses Not on filedocumented in this encounter Additional Health Concerns Assessment Noted Time PHQ-9 Depression Total Score: 11 024 12:50 PM CDT documented as of this encounter Care Teams Linotype Machinist Apprentice Relationship Specialty Start Date End Date Maria Del Carmen Whitt APRN, C.N.P. [facility] [phone] PCP - General Family Medicine 03/12/24 documented as of this encounter
--- OUTSIDE RECORDS SUMMARY | 2025-04-07 10:30 | XMS_ITS | Encounter Summary ---
Author Organization [facility] Address [address] [place] [address] Care Team Providers Care Career Development Specialist Name Role Phone Maria Del Carmen Whitt APRN C.N.PCherise Primary Care Provide r Reason for Visit * Appointment Request (Routine) - Closed Specialty Diagnoses / Procedures Referred By Dean mackenzie Referred To Contact Vascular Medicine Diagnoses High Risk (HCC) Personal History Of Other Venous Thrombosis And Embolism Leisa Calero, COLETTE [address] [place] [address] Phone: tel: fax: Referral ID Status Reason Start Date Expiration Date Visits Re quested Visits Authorized [id number] Closed 03/15/2025 06/15/2026 1 1 Encounter Details Date Type Department Care Team (Latest Contact Info) Description 04/07/2025 10:30 AM CDT Comprehensive Visit Department of Vascular Medicine in [place], [place] [address] [place] [phone] Ronal Alcala M.D. [address] [place] [phone] Embolus Pulmonary Personal History (Primary Dx); Examination Other Normal Second Trimester (HCC) Social History Tobacco Use Types Packs/Day Years Used Date Smoking Tobacco: Former Cigarettes Q uit: 2020 Smokeless Tobacco: Never Alcohol Use Standard Drinks/Week Comments Not Currently 0 (1 standard drink = 0.6 oz pur e alcohol) 1-2/ month [facility] Utilities Answer Date Recorded In the past [...] your living situation today? I have a [facility] place to live 06/26/2024 Education Answer Date Recorded What is the highest level of school you have completed or the highest degree you have received? 12th grade 09/22/2021 Comments Yes Sex and Gender Information Value Date Recorded Sex Assigned at Female 09/22/2021 9:30 AM CYLINDER INSPECTOR AND TESTER Legal Sex Female 8:05 AM CYLINDER INSPECTOR AND TESTER Gender Identity Female 09/22/2021 9:30 AM CYLINDER INSPECTOR AND TESTER Sexual Orientation Straight 09/22/2021 9: 30 AM CYLINDER INSPECTOR AND TESTER documented as of this encounter Last Filed Vital Signs Vital Sign Reading Time Taken Comments Blood Pressure 109/73 04/07/2025 10:22 AM CDT Pulse 62 04/07/2025 10:22 AM CDT Temperature - - Respiratory Rate - - Oxygen Saturation - - Inhaled Oxygen Concentration - - Weight 92.9 kg (204 lb 12.9 oz) 025 10:17 AM CDT Height 160 cm (5' 2.99) 04/07/2025 10: 17 AM CDT Body Mass Index 36.29 04/07/2025 10:17 AM CDT documented in this encounter Consult Notes * Ronal Alcala M.D. - 04/07/2025 10:30 AM CDT SUBJECTIVE CHIEF COMPLAINT / REASON FOR VISIT Ms. Sraah Garrido is a 29 y.o. female referred [facility] by Leisa Calero CNM for evaluation and recommendations regarding the patient's personal history of pulmonary embolus and need for special coagulation testing HISTORY OF PRESENT ILLNESS Ms. Garrido has a personal history of pulmonary embolus. On September 02 2017 she had reduction mammoplasty at [facility] in the [facility]. She was dismissed from the hospital the next day. On September 21, 2017 she presented to hospital with chest pain; she did not have any lower extremity swelling or edema consistent with DVT but had chest pain concerning for pulmonary embolus, especially as she had a D-dimer that was elevated at 1.94. CT chest was done that showed bilateral pulmonary embolus. The clot was segmental level in 1 area on the right and was only subsegmental in the left. There was no evidence of right heart strain. She describes being admitted briefly. She does not remember exactly what anticoagulant she was treated with or for how long precisely. However, a CT of thechest done on 10/29/2017 showed resolution of the pulmonary embolus. That has been her only episode of venous thrombosis. She has had other surgeries, she describes having had a couple of laparoscopic procedures but did not have any perioperative clotting complications. She also had a normal in 2012 and had no thrombosis complications related to that. There is no reported family history of venous thrombosis. In reading outside materials it looks like the question for today's visit is whether she has an underlying thrombophilia condition or whether testing should be done for that? In fact, on March 11 she underwent special coagulation studies. I have results of almost all of the testing. For example, protein C, protein S, antithrombin levels were all within normal limits. She tested negative for beta 2 GP 1 and cardiolipin antibodies both IgM and IgG of each subtype were negative or undetectable. The report mentions that results of prothrombin gene mutation and factor 5 Leiden gene testing werepending and I do not have the results available in the electronic medical records. Her medical history is notable otherwise for PCOS status post laparoscopic surgery in 2019 4 ruptured ovarian follicle; mandibular fracture and surgery; depression and ADD; pulmonary embolus history as mentioned above. I also asked about a mentioned in outside records that she has an allergy to Lovenox: She mentioned that that medication was used I believe postoperatively in 2019 after laparoscopic surgery and she developed hives, what sounds like a true allergic reaction. As I mentioned above the pulmonary embolus imaging did not show any evidence of heart strain. She does not endorse any symptoms of chronic dyspnea or chest pain. Current Outpatient Medications on File Prior to Visit Medication Sig albuterol 90 mcg/actuation inhaler Inhale 2 puffs every 4 (four) hours as needed for wheezing. rynhixi-xitglmydhsprp-iqsaqcec (EXCEDRIN MIGRAINE) 250-250-65 mg per tablet Take 2 tablets by mouthevery 6 (six) hours as needed for pain. dextroamphetamine-amphetamine (ADDERALL) 30 mg tablet Take 30 mg by mouth 2 (two) times a day. [DISCONTINUED] buPROPion XL (Wellbutrin XL) 150 mg 24 hr tablet Take 1 tablet (150 mg total) by mouth every morning. (Patient not taking: Reported on 04/05/2025) [DISCONTINUED] letrozole (Femara) 2.5 mg tablet (Patient not taking: Reported on 04/05/2025) [DISCONTINUED] sertraline (Zoloft) 50 mg tablet Take 50 mg by mouth daily. (Patient not taking: Reported on 04/05/2025) [DISCONTINUED] tirzepatide (Zepbound) 2.5 mg/0.5 mL injection pen Inject 2.5 mg under the skin every 7 (seven) days. (Patient not taking: Reported on 04/05/2025) No current facility-administered medications on file prior to visit. REVIEW OF SYSTEMS Pertinent items are noted in HPI. OBJECTIVE PHYSICAL EXAM Heart rate 62 regular, blood pressure 109/73 in the left arm; weight 92.9 kg; respiratory rate normal Heart: Regular rhythm no murmurs heard no S3 Lungs: Clear bilaterally, good air entry Extremities: No upper or lower extremity swelling or asymmetry and no signs of varicose veins Vessels: Carotid, brachial, radial, and pedal pulses all normal 4/4 with no bruits over the carotids. ASSESSMENT / PLAN Although I do not have images available I do have report from CTA of the chest dated 09/21/2017 which indicates bilateral pulmonary embolus including segmental PE on the right side; there is no reported right heart strain. There is no available concurrent DVT ultrasound. There was a follow-up CTA of the chest done 10/29/2017 that showed resolve pulmonary embolus. #1 Embolus Pulmonary Personal History With respect to whether she should have thrombophilia testing? She has already had a thorough panel of tests and everything that I am seeing is normal or negative. The only results I do not have are those from the gene studies related to the prothrombin [id number] mutation and factor 5 Leiden. I would recommend that she follow-up with her local provider who ordered the tests to see if she has the results available. I suspect they will be normal but if she findsthe results are abnormal I would be happy to hear from her through the portal and we can discuss what modification to recommendations we might need to make. Assuming that no thrombophilia condition is present on the blood testing, my interpretation of the most recent (2018) [employer] guideline recommendations for thromboprophylaxis during is that she would not be recommended to have prophylactic anticoagulation since her only clotting event in the past was non associated, it was related to a major surgery. I also would reiterate that given that she had a ???provoked?? pulmonary embolus in 2017, that is,it was triggered by a major transient risk factor (surgery) I agree with her not being on any anticoagulant therapy at this time. Ronal Alcala M.D. Vascular Medicine Pager: [phone] documented in this encounter Plan of Treatment Not on file documented as of this encounter Visit Diagnoses Diagnosis Embolus Pulmonary Personal History- Primary Examination Other Normal Second Trimester (HCC) documented in this encounter Additional Health Concerns Assessment Noted Time PHQ-9 Depression Total Score: 11 024 12:50 PM CDT documented as of this encounter Care Teams Career Development Specialist Relationship Specialty Start Date End Date Maria Del Carmen Whitt APRN, C.N.P. [address] [place] [phone] PCP - General Family Medicine 03/12/24 documented as of this encounter
--- OUTSIDE RECORDS SUMMARY | 2025-04-14 14:18 | XMS_ITS | Encounter Summary ---
Author Organization [facility] Address [address] [place] [address] Care Team Providers Care Digital Experience Manager Name Role Phone Elina Bettencourt PA-C Primary Care Provider + Reason for Referral * CV Testing (Routine) - Closed Specialty Diagnoses / Procedures Referred By Contac t Referred To Contact Cardiology Diagnoses Family history of VSD (ventricular septal defect) Procedures Echo (TTE) Complete Non-Fv Credentialed Provider, Radiology [facility] [address] [place] [phone] Phone: tel: Referral ID Status Reason Start Date Expiration Date Visits Re quested Visits Authorized [id number] Closed 04/01/2025 04/01/2026 1 1 Reason for Visit * CV Testing (Routine) - Closed Specialty Diagnoses / Procedures Referred By Contac t Referred To Contact Cardiology Diagnoses Family history of VSD (ventricular septal defect) Procedures Echo (TTE) Complete Non-Fv Credentialed Provider, Radiology [facility] [address] [place] [phone] Phone: tel: Referral ID Status Reason Start Date Expiration Date Visits Re quested Visits Authorized [id number] Closed 04/01/2025 04/01/2026 1 1 Encounter Details Date Type Department Care Team (Latest Contact Info) Description 04/14/2025 2:18 PM CDT - 04/14/2025 11:59 PM CDT Hospital Encounter M [facility] [address] [place] [phone] Chanell Rucker MD [address] [place] [phone] Urmfmusfet Family history of VSD (ventricular septal defect) Discharge Disposition: Home or Self Care Social History Tobacco Use Types Packs/Day Years Used Date Smoking Tobacco: Never Assessed Adolescent Education Answer Date Record ed Getting School Help Needed Not on file 02/11 Comments Unknown Sex and Gender Information Value Date Recorded Sex Assigned at Not on file Legal Sex Female 8:44 AM CDT Gender Identity Not on file Sexual Orientation Not on file documented as of this encounter Plan of Treatment Not on file documented as of this encounter Procedures Procedure Name Priority Date/Time Associated Diagnosis Comments ECHO COMPLETE Routine 04/14/2025 2 :42 PM CDT Family history of VSD (ventricular septal defect) documented in this encounter Results * ECHO COMPLETE (04/14/2025 2:42 PM CDT) Anatomical Region Laterality Modality Ultrasound 04/14/2025 2:22 PM CDT Narrative 04/14/2025 2:48 PM CDT [id number]^NON-FV CREDENTIALED PROVIDER^RADIOLOGY^ Study ID: [id number] [address] [place] [address] Echocardiogram Name: AIDA GARRIDO Study Date: 04/14/2025 02:22 PM Patient Location: [facility] Gender: Female Patient Class: Outpatient : 1995 Age: 29 yrs Ordering Provider: NON- CREDENTIALED PROVIDER, RADIOLOGY Performed By: Doris Cyr RDCS Reading Physician: Yolie Gallardo MD Reason For Study: Family history of VSD (ventricular septal defect) Data: Number of fetuses: This is a mitchell gestation. Due date: 08/30/2025. Gestational age: 20w2d. Specific Indication: echocardiogram performed for rule out VSD. CONCLUSIONS Normal cardiac anatomy. Normal right and left ventricular size and function. heart rate is regular at 150 bpm. No obvious ventricular level shunting. No hydrops. The results of the echocardiogram were explained. Although this was a technically difficult study, the patient is aware that no obvious cardiac abnormalities were identified. She is aware of the general limitations of echocardiography. Technical Information: A complete two dimensional, spectral and color Doppler echocardiogram is performed. Difficult study due to position and poor imaging windows. position and segmental anatomy: The fetus in vertex position. The heart is in left chest. The cardiac apex points towards the left. There is normal atrial arrangement, with concordant atrioventricular and ventriculoarterial connections. The abdominal aorta is to the left of the spine. There is a left sided stomach. Systemic and pulmonary veins: The systemic venous return is normal. At least one right and one left pulmonary veins are seen returning to the left atrium. Atria and atrial septum: Normal right atrial size. The left atrium is normal in size. The flap of the foramen ovale opens in to the left atrium. There is laminar cxmbz-fq-jytj shunting across the foramen ovale. Atrioventricular valves: The tricuspid valve is normal in appearance and motion. There is no tricuspid insufficiency. The mitral valve is normal in appearance and motion. There is no mitral valve insufficiency. Ventricles and ventricular septum: Normal right ventricular size. Normal right ventricular systolic function. Normal left ventricular size. Normal left ventricular systolic function. No obvious ventricular level shunting. Outflows tracts: Normal great artery relationship. The right ventricular outflow tract is normal in caliber. The pulmonary valve has normal appearance and motion. There is normal flow across the pulmonary valve. There is unobstructed flow through the left ventricular outflow tract. The aortic valve has normal appearance and motion. There is normal flow across the aortic valve. Great arteries: The main pulmonary artery has normal appearance. There is unobstructed flow in the main pulmonary artery. The pulmonary artery bifurcation is normal. There is unobstructed flow in both branch pulmonary arteries. The ductus arteriosus has normal appearance with normal antegrade flow. There is unobstructed antegrade flow in the ascending aorta. The aortic arch appears normal. There is unobstructed antegrade flow in the aortic arch. Effusions and extracardiac findings: No pericardial effusion. No hydrops. cardiac rhythm: heart rate is regular at 150 bpm. Doppler: There is normal flow in the ductus venosus, umbilical artery and umbilical vein. echocardiography cannot rule out small atrial or ventricular septal defects, persistent ductus arteriosus, mild coarctation of the aorta, partial anomalous pulmonary venous return, minor anatomic valve anomalies or coronary artery anomalies. Reading Physician: Yolie Gallardo MD 04/14/2025 02:48 PM Procedure Note Yolie Gallardo MBBS - 04/14/2025 [id number]^NON-FV CREDENTIALED PROVIDER^RADIOLOGY^ Study ID:[id number] [facility] [address] Echocardiogram Name: AIDA GARRIDO Study Date: 04/14/2025 02:22 PM Patient Location:[facility] Gender: Female Patient Class:Outpatient : 1995 Age: 29 yrs Ordering Provider: NON- CREDENTIALED PROVIDER, RADIOLOGY Performed By: Doris Cyr RDCS Reading Physician: Yolie Gallardo MD Reason For Study: Family history of VSD (ventricular septal defect) Data: Number of fetuses: This is a mitchell gestation. Duedate: 08/30/2025. Gestational age: 20w2d. Specific Indication: echocardiogram performed for rule outVSD. CONCLUSIONS Normal cardiac anatomy. Normal right and left ventricular size and function. heart rate is regular at 150 bpm. No obvious ventricular level shunting. No hydrops. The results of the echocardiogram were explained. Although this wasa technically difficult study, the patient is aware that no obviouscardiac abnormalities were identified. She is aware of the general limitationsof echocardiography. Technical Information: A complete two dimensional, spectral and color Doppler fetalechocardiogram is performed. Difficult study due to position and poor imagingwindows. position and segmental anatomy: The fetus in vertex position. The heart is in left chest. The cardiacapex points towards the left. There is normal atrial arrangement, withconcordant atrioventricular and ventriculoarterial connections. The abdominal aortais to the left of the spine. There is a left sided stomach. Systemic and pulmonary veins: The systemic venous return is normal. At least one right and one left pulmonary veins are seen returning to the left atrium. Atria and atrial septum: Normal right atrial size. The left atrium is normal in size. The flap ofthe foramen ovale opens in to the left atrium. There is abwweishmnhj-uz-nefv shunting across the foramen ovale. Atrioventricular valves: The tricuspid valve is normal in appearance and motion. There is notricuspid insufficiency. The mitral valve is normal in appearance and motion. Thereis no mitral valve insufficiency. Ventricles and ventricular septum: Normal right ventricular size. Normal right ventricular systolicfunction. Normal left ventricular size. Normal left ventricular systolic function.No obvious ventricular level shunting. Outflows tracts: Normal great artery relationship. The right ventricular outflow tract is normal in caliber. The pulmonary valve has normal appearance and motion.There is normal flow across the pulmonary valve. There is unobstructed flowthrough the left ventricular outflow tract. The aortic valve has normal appearanceand motion. There is normal flow across the aortic valve. Great arteries: The main pulmonary artery has normal appearance. There is unobstructedflow in the main pulmonary artery. The pulmonary artery bifurcation is normal.There is unobstructed flow in both branch pulmonary arteries. The ductusarteriosus has normal appearance with normal antegrade flow. There is unobstructed antegrade flow in the ascending aorta. The aortic arch appears normal.There is unobstructed antegrade flow in the aortic arch. Effusions and extracardiac findings: No pericardial effusion. No hydrops. cardiac rhythm: heart rate is regular at 150 bpm. Doppler: There is normal flow in the ductus venosus, umbilical artery andumbilical vein. echocardiography cannot rule out small atrial or ventricularseptal defects, persistent ductus arteriosus, mild coarctation of the aorta,partial anomalous pulmonary venous return, minor anatomic valve anomalies orcoronary artery anomalies. Reading Physician: Yolie Gallardo MD 04/14/2025 02:48 PM us Radiology Non-Fv Credentialed Provider CV PEDS E CHO ORDERABLES Edited Result - Final documented in this encounter Visit Diagnoses Diagnosis Family history of VSD (ventricular septal defect) Family history of other neurological diseases documented in this encounter Care Teams Digital Experience Manager Relationship Specialty Start Date End Date Elina Bettencourt, NOLAN PCP - General Clinic 06/29/20 documented as of this encounter
[2025-05-11] VITALS (26 sets, daily range): BP systolic 92–119; BP diastolic 51–84; PULSE 64–126; RESP 13–29; TEMP 36.9; O2SAT 87–100; BMI 38.0
--- OUTSIDE RECORDS SUMMARY | 2025-05-11 10:48 | XMS_ITS | Clinical Summary ---
Author Organization [facility] Address [address] [place] [address] Care Team Providers Care Sales Support Manager Name Role Phone Maria Del Carmen Whitt APRN C.N.P. Primary Care Provide r Source Comments Patient records contain information from all sites at [facility]. For routine questions regarding patient records, call [phone] during business hours, M-F 8:00 AM - 5:00 PM Central Time. Record requests for emergency care only can be directed to [phone] at any time.[facility] Allergies Active Allergy Reactions Criticality Noted Date Comments Enoxaparin Hives (Reselect Reaction) High 10/24/2020 Itching and urticaria spreading from injection sites House Dust Mite Itching 12/05/2011 Peanut Itching 12/05/2011 Medications * This document contains information received from the source organization and may not represent a complete record from that organization. dextroamphetamine -amphetamine (ADDERALL) 30 mg tablet Take 30 mg by mouth 2 (two) times a day. 1 Active aspirin-acetamino phen-caffeine (EXCEDRIN MIGRAINE) 250-250-65 mg per tablet Take 2 tablets by mouth every 6 (six) hours as needed for pain. Active albuterol 90 mcg/actuation inhalerIndication s:Asthma Mild Intermittent (HCC) Inhale 2 puffs every 4 (four) hours as needed for wheezing. 18 g 2 4 Active Active Problems Problem Noted Date Diagnosed [...] organization. Date Type Department Care Team Description 04/07/2025 10:30 AM CDT Comprehensive Visit Department of Vascular Medicine in [place], [place] [address] [place] [address] Ronal Alcala M.D. Embolus Pulmonary Personal History (Primary Dx); Examination Other Normal Second Trimester (HCC) 04/05/2025 9:45 AM CDT Clinical Communication Virtual Review in [place], [place] [address] [place] [address] Pre-visit Intake from Last 3 Months Immunizations Immunization Administration [...] oz pur e alcohol) 1-2/ month [facility] [employer] Answer Date Recorded In the past 12 months has e [employer], gas, oil, or water [employer] threatened to shut off services in your [...] your living situation today? [facility] 06/26/2024 Education Answer Date Recorded What is the highest level of school you have completed or the highest degree you have received? 12th grade 09/22/2021 Comments Yes Sex and Gender Information Value Date Recorded Sex Assigned at Female 09/22/2021 9:30 AM SPANISH SPEAKING NANNY Legal Sex Female 8:05 AM SPANISH SPEAKING NANNY Gender Identity Female 09/22/2021 9:30 AM SPANISH SPEAKING NANNY Sexual Orientation Straight 09/22/2021 9: 30 AM SPANISH SPEAKING NANNY Last Filed Vital Signs Vital Sign Reading Time Taken Comments Blood Pressure 109/73 04/07/2025 10:22 AM CDT Pulse 62 04/07/2025 10:22 AM CDT Temperature 36.1 C (97 F) 02/05/2025 1:53 PM CDT Respiratory Rate 20 02/05/2025 1:53 PM CDT Oxygen Saturation 100% 06/10/2024 9:00 PM CDT Inhaled Oxygen Concentration - - Weight 92.9 kg (204 lb 12.9 oz) 025 10:17 AM CDT Height 160 cm (5' 2.99) 04/07/2025 10: 17 AM CDT Body Mass Index 36.29 04/07/2025 10:17 AM CDT Plan of Treatment Health Maintenance Due Date Last Done Comments HIV Screening 1995 Hepatitis C Screening 1995 Pneumococcal vaccine (0-49 y ears) (2 of 2 - PCV) 09/26/2017 09/26/2016 DTaP,Tdap,and Td Vaccines (8 - Td or Tdap) 12/23/2022 12/23/2012, 12/03/2012, 06/12/2006, Additional history exists COVID-19 Vaccine ( - 2023-2 5 season) 2024 Asthma Action Plan 09/22/2024 Asthma Control Test Questionnaire 09/22/2024 Asthma Management/Exacerbati on Questionnaire (AMQ/AEQ) 09/22/2024 Depression Monitoring (PHQ-9) 10/26/2024 06/26/2024 Depression Monitoring (PHQ-9 for quality tracking) 10/28/2024 Influenza Vaccine (#1) 2025 7, 06/20/2016, 08/24/2015, Additional history exists Cervical/Vaginal Cancer Screening 2026 2023, 01/14/2019, 07/01/2012 RSV vaccine - (32-3 6 weeks) or 60+ years (1 - 1-dose 75+ series) 2070 IPV Vaccines Completed 04/25/2000, 06/1996, 06/05/1996, Additional history exists HPV Vaccines Completed 01/12/2009, 08/28, 07/07/2008 Hepatitis B Vaccines Completed 01/22/2017, 1995, 1995, Additional history exists Procedures Procedure Name Priority Date/Time Associated Diagnosis Comments THINPREP SCREEN HPV REFLEX Routine 2023 12:15 PM CDT Pap Smear Examination from Last 3 Months or Most Recently Relevant to Health Maintenance Results * ThinPrep Screen HPV Reflex (2023 12:15 [...] 05/09/2023 7:26 AM CDT us Carrie Machado APRN, C.N.P., M.S.N. LAB PAP PATH DX ORDERABLES Final Result [facility] [address] [place] [address], [place] [facility] [address] [facility] [address] [place] [phone] from Last 3 Months or Most Recently Relevant to Health Maintenance Insurance [facility] Care Teams Sales Support Manager Relationship Specialty Start Date End Date Maria Del Carmen Whitt APRN, C.N.P. [address] [place] [phone] PCP - General Family Medicine 03/12/24
--- OUTSIDE RECORDS SUMMARY | 2025-05-11 10:48 | XMS_ITS | Encounter Summary ---
Author Organization [facility] Address [address] [place] [address] Care Team Providers Care Bread Molder Name Role Phone Elina Bettencourt PA-C Primary Care Provider + Encounter Details Date Type Department Care Team (Latest Contact Info) Description 04/14/2025 Travel Social History Tobacco Use Types Packs/Day Years [...] Diagnoses Not on filedocumented in this encounter Care Teams Bread Molder Relationship Specialty Start Date End Date Elina Bettencourt PA-C PCP - General Clinic 06/29/20 documented as of this encounter
--- OUTSIDE RECORDS SUMMARY | 2025-05-11 10:48 | XMS_ITS | Encounter Summary ---
Author Organization [facility] Address [address] [place] [phone] Care Team Providers Care Rural Mail Carrier Name Role Phone Elina Bettencourt PA-C Primary Care Provider + Encounter Details Date Type Department Care Team (Late st Contact Info) Description 03/31/2025 Medical Correspondence [facility] Health Information Management [address] [facility] [address] [place] [address] Scan, Non-Provider Social History Tobacco Use Types Packs/Day Years [...] on filedocumented in this encounter Care Teams Rural Mail Carrier Relationship Specialty Start Date End Date Elina Bettencourt PA-C PCP - General Clinic 06/29/20 documented as of this encounter
--- OUTSIDE RECORDS SUMMARY | 2025-05-11 10:48 | XMS_ITS | Clinical Summary ---
Author Organization [facility] Address [address] [place] [address]. [place] [address] Care Team Providers Care Area Field Worker Name Role Phone Elina Bettencourt PA-C Primary Care Provider + Encounters Date Type Department Care Team Description 04/14/2025 2:18 PM CDT - 04/14/2025 11:59 PM CDT Hospital Encounter [facility] [address] [place] [phone] Chanell Rucker MD Urmfmusfet Family history of VSD (ventricular septal defect) Discharge Disposition: Home or Self Care 04/14/2025 Travel 04/01/2025 Medical Correspondence [facility] Information Management [address] [place] [phone] Scan, Non-Provider 03/31/2025 Medical Correspondence [facility] Information [address] [phone] Scan, Non-Provider from Last 3 Months Social History Tobacco Use Types Packs/Day Years Used Date Smoking Tobacco: Never Assessed Adolescent Education Answer Date Record ed Getting School Help Needed Not on file 02/11 Comments Unknown Sex and Gender Information Value Date Recorded Sex Assigned at Not on file Legal Sex Female 8:44 AM CDT Gender Identity Not on file Sexual Orientation Not on file Plan of Treatment Health Maintenance Due Date Last Done Comments ADVANCE CARE PLANNING 1995 ANNUAL REVIEW OF HM ORDERS 1995 YEARLY PREVENTIVE VISIT 1998 HEPATITIS C SCREENING 2013 DTAP/TDAP/TD VACCINE (8 - Td or Tdap) 12/23/2022 12/23/2012, 12/03/2012, 06/12/2006, Additional history exists COVID-19 VACCINE ( season) 2024 PHQ-2 (once per calendar year) 2024 INFLUENZA VACCINE (#1) 2025 7, 06/20/2016, 08/24/2015, Additional history exists PAP 2026 2023, 07/01/2012 ZOSTER VACCINE (1 of 2) 2045 HPV VACCINE Completed 01/12/2009, 08/28, 07/07/2008 HIV SCREENING Completed 06/04/2012 MENINGITIS VACCINE Completed 11/18/2013, 07/07/2008 PNEUMOCOCCAL VACCINE: PEDIATRICS (0 to 5 YEARS) AND AT-RISK PATIENTS (6 to 49 YEARS) Aged Out 09/26/2016 No longer eligible based on patient's age to complete this topic HEPATITIS B VACCINE Completed 01/22/2017, 1995, 1995, Additional history exists Procedures Procedure Name Priority Date/Time Associated Diagnosis Comments ECHO COMPLETE Routine 04/14/2025 2 :42 PM CDT Family history of VSD (ventricular septal defect) from Last 3 Months Results * ECHO COMPLETE (04/14/2025 2:42 PM CDT) Anatomical Region Laterality Modality Ultrasound 04/14/2025 2:22 PM CDT Narrative 04/14/2025 2:48 PM CDT [id number]^NON-FV CREDENTIALED PROVIDER^RADIOLOGY^ Study ID: [id number] [facility] [address] [address] Echocardiogram Name: AIDA GARRIDO Study Date: 04/14/2025 02:22 PM Patient Location: [facility] Gender: Female Patient Class: Outpatient [...] to the left atrium. There is laminar arvor-tt-zspy shunting across the foramen ovale. Atrioventricular valves: [...] Procedure Note Yolie Gallardo MBBS - 04/14/2025 [id number] [facility] [id number]^NON-FV CREDENTIALED PROVIDER^RADIOLOGY^ Study ID:[id number] [facility] [place] [id number] [facility] [place] [address] Echocardiogram Name: AIDA GARRIDO Study Date: 04/14/2025 02:22 PM Patient Location:[facility] Gender: Female Patient Class:Outpatient : 1995 Age: 29 yrs Ordering Provider: NON-FV CREDENTIALED PROVIDER, RADIOLOGY Performed By: Doris Cyr [...] in to the left atrium. There is rttayegvhffb-zy-giwc shunting across the foramen ovale. Atrioventricular valves: [...] E CHO ORDERABLES Edited Result - Final from Last 3 Months Insurance [facility] Care Teams Area Field Worker Relationship Specialty Start Date End Date Elina Bettencourt PA-C PCP - General Clinic 06/29/20
--- OUTSIDE RECORDS SUMMARY | 2025-05-11 10:48 | XMS_ITS | Clinical Summary ---
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 Please review and update [...] vaccine series ( season) 2024 Influenza Vaccine (#1) 2025 2, 07/20/2009, 09/07/2008, Additional history exists Hepatitis B series for 19+ Completed 11/04, 1995, 1995 HIV for age 15-65 Completed 06/04/2012 Pneumococcal series for age 6-49 Aged Out No longer eligible based on patient's age to complete this topic Procedures Procedure Name Priority Date/Time Associated Diagnosis Comments ECHO TTE COMPLETE WO CONTRAST Routine 04/12/2025 9:46 AM CDT Personal history of (corrected) congenital malformations of heart and circulatory system TELEPHONE REPAIRER THIN PREP PAP SCREEN IMAGED Routine 07/01/2012 6:02 PM CDT Supervision of normal first (HC) ANTI HIV 1/2 Routine 06/04/2012 10:14 AM CDT examination or test, unconfirmed from Last 3 Months or Most Recently Relevant to Health Maintenance Results * ECHO TTE COMPLETE WO CONTRAST (04/12/2025 9:46 AM CDT) AORTIC VALVE MEAN PG 5 mmHg EJECTION FRACTION 59 % PEAK TR VELOCITY 2.0 m/s LVEDD 4.9 cm EJECTION FRACTION 55 - 60% Anatomical Region Laterality Modality Ultrasound 04/12/2025 9:16 AM CDT Narrative 04/12/2025 10:26 AM CDT ECHOCARDIOGRAM SARAH GARRIDO : 1995 29 years Study Date: 04/12/2025 9:16:05 AM Gender: F BP: 115/80 mmHg Height: 157.00 cm BSA: 1.92 m Weight: 92.00 kg Tech: JOVANI Referring MD: [facility] Site: [facility] Reading Location: Mobile-OP Patient Location: Outpatient. Procedure: 2D, Color Doppler and Spectral Doppler. Indication for study: Personal history of (corrected) congenital malformations of heart and circulatory system Cardiac Rhythm: Irregular.Study quality: Excellent. Final Impressions: 1. Normal left ventricular size, normal wall thickness, normal global systolic function, calculated EF of 59 %. 2. Right ventricular cavity size is normal, global systolic RV function is normal. 3. No significant valve disease detected. Chamber Sizes and Function Normal left ventricular size, normal wall thickness, normal global systolic function, calculated EF of 59 %. No resting regional wall motion abnormality visualized. Left atrial size is normal. Left atrial pressure is normal. Right ventricular cavity size is normal, global systolic RV function is normal. RV wall thickness is normal. The right atrium is normal. Right atrial volume index is 15 ml/m . Right atrial area is 13 cm . The pulmonary artery is of normal size and origin. The sinus of Valsalva is normal sized. The ascending aorta is normal sized. Valves, RV Pressures and Diastolic Function The aortic valve is normal in structure and trileaflet, no stenosis and no regurgitation. The mitral valve is normal in structure, trace mitral regurgitation. Normal diastolic function for age. The tricuspid valve is normal in structure, trace tricuspid regurgitation. The tricuspid regurgitant velocity is 2.0 m/s, the estimated right ventricular systolic pressure is 16 mmHg plus right atrial pressure. The pulmonic valve is normal. No pulmonary regurgitation. Masses, Effusion, Shunts There is no pericardial effusion. The inferior vena cava is normal sized, respiratory size variation greater than 50%. No left to right shunting was detected by limited color flow Doppler interrogation of the interatrial septum. MEASUREMENTS AND CALCULATIONS 2-D Measurements and LV Function: LVID (d) 4.9 cm Planimetered EF 59 % LVID (s) 3.4 cm LV FS% (2D) 31 % IVS (d) 0.9 cm LVOT diameter 2.2 cm LVPW (d) 0.8 cm HR 57 bpm Ao Sinus 3.0 cm LA Vol index 28 ml/m2 Ao Sinus ULN 3.5 cm * RA Vol index 15 ml/m2 Asc Ao 2.7 cm RA area 13 cm Asc Ao ULN 3.3 cm * RV Basal Diam 4.2 cm LA 4.2 cm RV Mid Diam 3.6 cm * Input BSA outside of range, reported values correspond to BSA = 1.9 Diastology: Mitral Tissue Doppler E Peak 1.0 m/s e', Septum 0.10 m/s A Peak 0.4 m/s e', Lateral 0.15 m/s E/A 2.4 E/e' Average 8.02 DT 175 msec Aortic Valve: Vmax 1.5 m/s BERTHA (V) 3.27 cm VTI 0.35 m BERTHA (I) 2.79 cm LVOT V max 1.2 m/s Max PG 9 mmHg LVOT VTI 0.25 m Mean PG 5 mmHg SV 99 ml Dim Index 0.70 SV index 51 ml/m CO 5.6 l/min CI 2.9 l/min/m Mitral Valve: MVA 4.3 cm MV P 1/2 51 msec Tricuspid Valve and estimated PA pressures: TR Vmax 2.0 m/s TAPSE 2.5 cm TR maxG 16 mmHg . Report modified by Dudley Schulte MD on 04/12/2025 10:27:11 AM. This study was interpreted by an [facility] accredited facility. CC: [facility] (med records) [facility]. Final (Updated) Procedure Note Dudley Schulte MD - 04/12/2025 ECHOCARDIOGRAM SARAH GARRIDO : 1995 29 years Study Date: 04/12/2025 9:16:05 AM Gender: F BP: 115/80 mmHg Height: 157.00 cm BSA: 1.92 m Weight: 92.00 kg Tech: JOVANI Referring MD: LEISA [facility] Site: [facility] Reading Location: Mobile-OP Patient Location: Outpatient. Procedure: 2D, Color Doppler and Spectral Doppler. Indication for study: Personal history of (corrected) congenitalmalformations of heart and circulatory system Cardiac Rhythm: Irregular.Study quality: Excellent. Final Impressions: 1. Normal left ventricular size, normal wall thickness, normal globalsystolic function, calculated EF of 59 %. 2. Right ventricular cavity size is normal, global systolic RV functionis normal. 3. No significant valve disease detected. Chamber Sizes and Function Normal left ventricular size, normal wall thickness, normal globalsystolic function, calculated EF of 59 %. No resting regional wall motionabnormality visualized. Left atrial size is normal. Left atrial pressureis normal. Right ventricular cavity size is normal, global systolic RVfunction is normal. RV wall thickness is normal. The right atrium isnormal. Right atrial volume index is 15 ml/m . Right atrial area is 13cm . The pulmonary artery is of normal size and origin. The sinus ofValsalva is normal sized. The ascending aorta is normal sized. Valves, RV Pressures and Diastolic Function The aortic valve is normal in structure and trileaflet, no stenosis and noregurgitation. The mitral valve is normal in structure, trace mitralregurgitation. Normal diastolic function for age. The tricuspid valve isnormal in structure, trace tricuspid regurgitation. The tricuspidregurgitant velocity is 2.0 m/s, the estimated right ventricular systolicpressure is 16 mmHg plus right atrial pressure. The pulmonic valve isnormal. No pulmonary regurgitation. Masses, Effusion, Shunts There is no pericardial effusion. The inferior vena cava is normal sized,respiratory size variation greater than 50%. No left to right shunting wasdetected by limited color flow Doppler interrogation of the interatrialseptum. MEASUREMENTS AND CALCULATIONS 2-D Measurements and LV Function: LVID (d) 4.9 cm Planimetered EF 59% LVID (s) 3.4 cm LV FS% (2D) 31% IVS (d) 0.9 cm LVOT diameter2.2 cm LVPW (d) 0.8 cm HR 57bpm Ao Sinus 3.0 cm LA Vol index 28ml/m2 Ao Sinus ULN 3.5 cm * RA Vol index 15ml/m2 Asc Ao 2.7 cm RA area 13cm Asc Ao ULN 3.3 cm * RV Basal Diam4.2 cm LA 4.2 cm RV Mid Diam3.6 cm * Input BSA outside of range, reported values correspond to BSA = 1.9 Diastology: Mitral Tissue Doppler E Peak 1.0 m/s e', Septum 0.10 m/s A Peak 0.4 m/s e', Lateral 0.15 m/s E/A 2.4 E/e' Average 8.02 DT 175 msec Aortic Valve: Vmax 1.5 m/s BERTHA (V) 3.27 cm VTI 0.35 m BERTHA (I) 2.79 cm LVOT V max 1.2 m/s Max PG 9 mmHg LVOT VTI 0.25 m Mean PG 5 mmHg SV 99 ml Dim Index 0.70 SV index 51 ml/m CO 5.6 l/min CI 2.9 l/min/m Mitral Valve: MVA 4.3 cm MV P 1/2 51 msec Tricuspid Valve and estimated PA pressures: TR Vmax 2.0 m/s TAPSE 2.5 cm TR maxG 16 mmHg . Report modified by Dudley Schulte MD on 04/12/2025 10:27:11 AM. This study was interpreted by an [facility] accredited facility. CC: [facility] (med records) [facility]. Final (Updated) us Leisa Frye [facility] ECHO ORD Ed ited Result - Final * TELEPHONE REPAIRER THIN PREP PAP SCREEN IMAGED (07/01/2012 6:02 PM CDT) CYTOLOGY CYTOPATHOLOGY REPORT [facility] Status: Final Status [id number] CLINICAL INFORMATION Last Date of LMP : Last Pap Date :04/28/2009 Last Pap Result :NIL ABN [place]/Bx Past 5 YRS :None Hormone Usage :BCP/OCP/Patch/Rin g Menstrual Status :Regular Periods [place]/Bx done today :No Additional Information :None given [...] malignant lesions. COLLECTED:07/01/12 ACCESSIONED: 07/02/12 SIGNED: 07/04/12 [facility] PAP [place] CODE NIL [facility] Tissue specimen (specimen) (Cervical/Vagina l) 07/01/2012 6:02 PM CDT 07/01/2012 6:01 PM CDT Lizzie Antoineburn PATHOLOGY/CYTOLOGY Final Result [facility] [place]NAL ZIP [id number] [place] [id number] * ANTI HIV 1/2 (06/04/2012 10:14 AM CDT) ANTI HIV 1/2 Non-reacti ve [facility] Blood specimen (specimen) BLOOD SPECIMEN / Unknown 06/04/2012 10:14 AM CDT 06/04/2012 10:06 AM CDT Lizzie Lynsey SEND OUTS Final Result [facility] [place]NAL [address]IP [id number] [place] [id number] from Last 3 Months or Most Recently Relevant to Health Maintenance Insurance [facility] Advance Directives * Full Code (Latest Code [...] 6:24 PM 10/07/2012 10:52 PM Care Teams Oven Operator Relationship Specialty Start Date End Date Leisa Calero CNM [address] [place] [address] PCP - General Certified Nurse Drum Reel Cutter 04/12/25
--- OUTSIDE RECORDS SUMMARY | 2025-05-11 10:48 | XMS_ITS | Encounter Summary ---
Author Organization [facility] Address [address] [place] [address] Care Team Providers Care Celery Cutter Name Role Phone Elina Bettencourt PA-C Primary Care Provider + Encounter Details Date Type Department Care Team (Late st Contact Info) Description 04/01/2025 Medical Correspondence [facility] Health Information Management [address] [place] [address] Scan, Non-Provider Social History Tobacco Use Types [...] on filedocumented in this encounter Care Teams Celery Cutter Relationship Specialty Start Date End Date Elina Bettencourt PA-C PCP - General Clinic 06/29/20 documented as of this encounter
--- NOTE | 2025-05-11 11:04 | CRLHL7_ITS ---
For Patients: As a result of the Century Cures Act, medical imaging exams and procedure reports are released immediately into your electronic medical record. You may view this report before your referring provider. If you have questions, please contact your health care provider. INDICATION: Dyspnea. TECHNIQUE: Multiplanar CT pulmonary angiogram was performed after the administration of 95 mL of Isovue 370 intravenous contrast. COMPARISON: None. FINDINGS: Lower neck: The visualized thyroid is unremarkable. Cardiovascular: Contrast opacification of the pulmonary arterial tree is adequate. Heart size is normal. Thoracic aorta is normal in caliber. No significant atherosclerotic calcifications of the aortic arch. No significant coronary arterial calcifications. Acute pulmonary emboli within the bilateral main pulmonary arteries with extension into the segmental and subsegmental branches of the bilateral lower lobes, as well as the right middle lobe and lingula. Mildly enlarged main pulmonary artery measuring 3.4 cm. Mediastinum and lymph nodes: Small hiatal hernia. No pathologic mediastinal or hilar lymphadenopathy by size criteria. Lungs: No focal consolidation. Dependent atelectasis. Linear bandlike opacification of the lung bases bilaterally, likely subsegmental atelectasis and/or scarring. Trachea: Patent and midline. Mild diffuse peribronchial wall thickening. Pleura: No pleural effusions or pneumothorax Chest wall: Unremarkable. Bones: No acute osseous abnormalities. Upper abdomen: No acute findings in the visualized upper abdomen. No reflux of contrast material into the IVC. IMPRESSION: Acute multifocal pulmonary emboli. Mildly enlarged main pulmonary artery is suggestive of right heart strain. Please note that all CT scans at this facility use dose modulation, iterative reconstruction, and/or weight-based dosing when appropriate to reduce radiation dose to as low as reasonably achievable. Dictated by Av Soriano MD @ 05/11/2025 11:49:55 AM (Electronically Signed)
[2025-05-11 11:27] LABS: HCO3 VBG 24 mmol/L (21-28); Lactate* 1.6 mmol/L (0.5-1.9); PCO2 VBG 37 mmHG (40-50); PO2 VBG 86.6 mmHG (25-47); pH VBG 7.419 (7.32-7.43)
[2025-05-11 11:32] LABS: Hematocrit* 33.5 % (33.0-51.0); Hemoglobin* 11.1 gm/dL (12.0-16.0); Immature Granulocytes Abs Auto 0.04 K/uL (0.00-0.30); Immature Granulocytes Pct Auto 0.6 %; Mean Corpuscular HGB Conc 33 gm/dL (32-36); Mean Corpuscular Hemoglobin 29 pg (26-34); Mean Corpuscular Volume 86 fL (80-100); RDW Coefficient of Variation % 13.3 % (11.5-15.5); Red Blood Count* 3.88 m/uL (4.00-5.20); White Blood Count* 6.68 K/uL (4.50-11.00)
[2025-05-11 11:33] LABS: Lymphocytes Absolute Auto 1.10 K/uL (0.90-2.90); Slide Review Reflex No
[2025-05-11 11:40] LABS: Albumin* 3.5 g/dL (3.3-5.0); Chloride* 106 mmol/L (96-114)
[2025-05-11 11:41] LABS: Potassium* 3.6 mmol/L (3.6-5.1); Sodium* 132 mmol/L (135-149)
[2025-05-11 11:43] LABS: Blood Urea Nitrogen* 4 mg/dL (5-24); Creatinine* 0.5 mg/dL (0.5-1.5); Est. Creatinine Clearance* 130.12; Estimated Glomerular Filt Rate 129 ml/min
[2025-05-11 11:44] LABS: Alanine Aminotransferase* 11 U/L (4-35); Alkaline Phosphatase* 66 U/L (40-150); Anion Gap 3 mEq/L (7-15); Aspartate Amino Transferase* 23 U/L (12-35); Bilirubin Direct* 0.0 mg/dL (0.0-0.5); Bilirubin Total* 0.3 mg/dL (0.1-1.5); Calcium* 9.2 mg/dL (8.4-10.6); Carbon Dioxide* 23 mmol/L (20-32); Glucose* 106 mg/dL (60-115); Total Protein* 6.8 g/dL (6.0-8.3)
--- NOTE | 2025-05-11 11:51 | ED.GENADULT ---
HPI - General Adult General Chief complaint: Shortness of Breath/Dyspnea Stated complaint: 24wks , shortness of breath Time Seen by Provider: 05/11/25 10:56 Source: patient Mode of arrival: ambulatory Limitations: no limitations History of Present Illness HPI narrative: 30-year-old female presenting shortness of breath. Patient is a at approximately 24 weeks gestation developed shortness of breath approximately 1 week ago. She denies cough, fevers or chills. Has a history of PE approximately 9 years ago after procedure. Also has a history of asthma. Denies any wheezing. Feel short of breath at rest and certainly worse with physical activity. Complains of heart beating fast with minimal physical activity. is otherwise been uncomplicated. Related Data Home Medications ?Medication ?Instructions ?Recorded ?Confirmed arginine 1,000 mg-B12 16.6 tab PO 02/12/25 04/15/25 mcg-folic acid 66.6 mcg-B6 3.3 mg tablet docosahexaenoic acid 200 mg mg PO 02/12/25 04/15/25 capsule ( DHA) aspirin 81 mg tablet 81 mg PO QDAY 03/30/25 04/15/25 calcium 250 mg (as 1 tab PO ONCE 04/15/25 04/15/25 citrate)-vitamin D3 5 mcg (200 unit) tablet (Citracal Regular) cholecalciferol (vitamin D3) 10 10 mcg PO QDAY 04/15/25 04/15/25 mcg (400 unit) capsule lactobacillus combination no.4 3 3,000 mmu cells PO QDAY 04/15/25 04/15/25 billion cell capsule (Probiotic) magnesium 200 mg tablet 200 mg PO QDAY 04/15/25 04/15/25 Allergies Allergy/AdvReac Type Severity Reaction Status Date / Time house dust mite Allergy Mild Nasal Verified 05/11/25 11:42 Discharge enoxaparin (From Lovenox) Allergy Verified 05/11/25 11:42 tree nuts Allergy Mild hives Uncoded 05/11/25 11:42 Review of Systems Status of ROS: Reports: 10 or more systems reviewed and unremarkable except as noted in History and below [facility] Medical History Infertility PCOS (polycystic ovarian syndrome) ?E28.2 - Polycystic ovarian syndrome (ICD-10) History of venous thromboembolism ?Z86.718 - Personal history of other venous thrombosis and embolism (ICD-10) Depression ?F32.A - Depression, unspecified (ICD-10) Endometriosis ?N80.9 - Endometriosis, unspecified (ICD-10) Chlamydia ?A74.9 - Chlamydial infection, unspecified (ICD-10) Dyspareunia Ovarian cyst ?N83.209 - Unspecified ovarian cyst, unspecified side (ICD-10) Surgical History History of laparoscopy ?Z98.890 - Other specified postprocedural states (ICD-10) Status post breast reduction ?Z98.890 - Other specified postprocedural states (ICD-10) Family History Other Breast cancer Endometriosis Infertility Social History Smoking Status: Never smoker How often do you have a drink containing alcohol: never AUDIT-C Alcohol total score: 0 Non-prescribed substance use: denies use Exam Narrative: Exam Narrative: Well-nourished well-developed patient in mild respiratory distress. Alert and oriented. Answers questions appropriately. Mood and affect are appropriate. Thoughts are goal oriented and rational. No tangential or magical thinking noted. Cannot complete a full sentence without needing to catch her breath. HEENT: Normocephalic atraumatic. Pupils are equally round reactive to light. Extraocular muscles are intact. Conjunctivae are moist without any icterus noted. Moist mucous membranes. Posterior pharynx is normal. Neck is soft. Cardiovascular: Tachycardic. Lungs: Clear to auscultation bilaterally no wheezes rhonchi or rales are appreciated. Patient takes deep breaths without any discomfort. Abdomen: Soft and nontender nondistended with normal bowel sounds. Gravid. Extremities: Bilateral lower extremities are without edema. Skin: Well perfused without any obvious rashes. Const: Vital Signs, click to edit/add: Vital Signs - 24 hr 05/11/25 10:47 05/11/25 11:35 05/11/25 11:39 Temperature 98.5 F Pulse Rate Pulse Rate [Pulse Oximeter] 126 H 89 Respiratory Rate 18 20 Blood Pressure Blood Pressure [Ri ght Upper Arm] 119/82 105/79 Pulse Oximetry 100 100 100 Oxygen Delivery Me thod Room Air Room Air 05/11/25 11:42 05/11/25 12:00 05/11/25 12:01 Temperature Pulse Rate 97 117 H 88 Pulse Rate [Pulse Oximeter] Respiratory Rate 20 24 13 Blood Pressure 116/77 Blood Pressure [Ri ght Upper Arm] Pulse Oximetry 100 98 99 Oxygen Delivery Me thod 05/11/25 13:30 05/11/25 13:31 05/11/25 13:32 Temperature Pulse Rate 66 77 86 Pulse Rate [Pulse Oximeter] Respiratory Rate 23 19 Blood Pressure 108/84 Blood Pressure [Ri ght Upper Arm] Pulse Oximetry 100 99 100 Oxygen Delivery Me thod 05/11/25 13:33 Temperature Pulse Rate 84 Pulse Rate [Pulse Oximeter] Respiratory Rate 18 Blood Pressure Blood Pressure [Ri ght Upper Arm] Pulse Oximetry 100 Oxygen Delivery Me thod Course Course ED Course: EKG, read by me, shows normal sinus rhythm with a pulse of 68. CBC is unremarkable. Sodium slightly low at 132. Normal troponin. CT scan shows multifocal PE with a mildly enlarged main pulmonary artery suggestive of right heart strain. Patient allergic to Lovenox, heparin was started at this time. Discussed with Dr. Reaves who recommended transfer. While waiting for transfer, we did bilateral lower extremity ultrasounds to get a better idea of her clot burden, which were both negative. Did eventually get confirmation from Dr. Rey, that the patient will be accepted to a med/surg bed at the [facility]. Patient remains hemodynamically stable. Vital Signs Vital signs: Initial Vital Signs Temperature 98.5 F 05/11/25 10:47 Temperature Source Temporal Artery Scan 05/11/25 10:47 Pulse Rate 126 H 05/11/25 10:47 Respiratory Rate 18 05/11/25 10:47 Blood Pressure 119/82 05/11/25 10:47 Blood Pressure Mean 94 05/11/25 10:47 Blood Pressure Position Sitting 05/11/25 10:47 Pulse Oximetry 100 05/11/25 10:47 Oxygen Delivery Method Room Air 05/11/25 10:47 Vital Signs Temperature 98.5 F 05/11/25 10:47 Pulse Rate 126 H 05/11/25 10:47 Respiratory Rate 18 05/11/25 10:47 Blood Pressure 119/82 05/11/25 10:47 Pulse Oximetry 100 05/11/25 10:47 Oxygen Delivery Method Room Air 05/11/25 10:47 Temperature 98.5 F 05/11/25 10:47 Pulse Rate 84 05/11/25 13:33 Respiratory Rate 18 05/11/25 13:33 Blood Pressure 108/84 05/11/25 13:32 Pulse Oximetry 100 05/11/25 13:33 Oxygen Delivery Method Room Air 05/11/25 11:35 Medications Administered Medications: Generic Name Dose Route Start Last Admin Trade Name Freq PRN Reason Stop Dose Admin Heparin Sodium/Dextrose 25,000 unit in 500 mls @ 0 mls/hr 05/11/25 12:15 05/11/25 12:45 Heparin IV 1,500 unit/hr .Q0M STEPHY 30 mls/hr Protocol Administration Per Protocol Discontinued Medications Generic Name Dose Route Start Last Admin Trade Name Freq PRN Reason Stop Dose Admin Heparin Sodium (Porcine) 7,500 unit 05/11/25 12:02 05/11/25 12:47 Heparin 5,000 Unit/0.5 Ml Inj 80 unit/kg (7500 unit) 05/11/25 12:03 7,500 unit IVP Administration ONCE ONE Sodium Chloride 500 mls @ 500 mls/hr 05/11/25 12:53 05/11/25 13:34 0.9 % Sodium Chloride 500 Ml IV 05/11/25 13:52 500 mls/hr .Q1H ONE Administration Medical Decision Making MDM Narrative Medical decision making narrative: 30-year-old female, 24 weeks gestation with bilateral PEs. Patient will be transferred to the [facility]. Lab Data Lab results reviewed: Yes I reviewed the patient's lab results Labs: Lab Results 05/11/25 05/11/25 Range/Units 11:14 12:03 WBC 6.68 (4.50-11.00) K/uL RBC 3.88 L (4.00-5.20) m/uL Hgb 11.1 L (12.0-16.0) gm/dL Hct 33.5 (33.0-51.0) % MCV 86 (80-100) fL MCH 29 (26-34) pg MCHC 33 (32-36) gm/dL RDW Coeff of Carla 13.3 (11.5-15.5) % Plt Count 178 (140-440) K/uL Neut % (Auto) 76.1 H (42.0-72.0) % Lymph % (Auto) 15.9 L (20-44) % [place] % (Auto) 7.0 (0.0-11.0) % Eos % (Auto) 0.4 (0.0-7.0) % Baso % (Auto) 0.0 (0.0-3.0) % Neut # (Auto) 5.10 (1.7-7.0) K/uL Lymph # (Auto) 1.10 (0.90-2.90) K/uL [place] # (Auto) 0.50 (0.00-0.90) K/UL Eos # (Auto) 0.03 (0.00-0.50) K/uL Baso # (Auto) 0.00 (0.00-0.30) K/uL Abs Immat Gran (auto) 0.04 (0.00-0.30) K/uL Imm/Tot Granulo (auto) 0.6 % INR 0.93 (0.91-1.10) APTT 27 (23-33) Seconds VBG pH 7.419 (7.32-7.43) VBG pCO2 37 L (40-50) mmHG VBG pO2 86.6 H (25-47) mmHG VBG HCO3 24 (21-28) mmol/L Sodium 132 L (135-149) mmol/L Potassium 3.6 (3.6-5.1) mmol/L Chloride 106 (96-114) mmol/L Carbon Dioxide 23 (20-32) mmol/L Anion Gap 3 L (7-15) mEq/L BUN 4 L (5-24) mg/dL Creatinine 0.5 (0.5-1.5) mg/dL Estimated Creat Clear 130.12 Estimated GFR 129 ml/min Glucose 106 (60-115) mg/dL Lactate 1.6 (0.5-1.9) mmol/L Calcium 9.2 (8.4-10.6) mg/dL Magnesium 1.6 (1.5-2.6) mg/dL Total Bilirubin 0.3 (0.1-1.5) mg/dL Direct Bilirubin 0.0 (0.0-0.5) mg/dL AST 23 (12-35) U/L ALT 11 (4-35) U/L Alkaline Phosphatase 66 (40-150) U/L Troponin I 0.03 (0.01-0.04) ng/mL C-Reactive Protein 1.1 H (0.5-1.0) mg/dL NT-Pro-B Natriuret Pep 39 (See Note) pg/mL Total Protein 6.8 (6.0-8.3) g/dL Albumin 3.5 (3.3-5.0) g/dL TSH 0.913 (0.270-4.20) uIU/mL SARS-CoV-2 (PCR) Negative SARS-CoV-2 (Negative) Influenza Type A (PCR) Negative PCR FLU A (Negative) Influenza Type B (PCR) Negative PCR FLU B (Negative) RSV (PCR) Negative PCR RSV (Negative) Imaging Data CT scan - chest: Attestation: I have reviewed the pertinent imaging results. Radiologist's impression: TECHNIQUE: Multiplanar CT pulmonary angiogram was performed after the administration of 95 mL of Isovue 370 intravenous contrast. COMPARISON: None. FINDINGS: Lower neck: The visualized thyroid is unremarkable. Cardiovascular: Contrast opacification of the pulmonary arterial tree is adequate. Heart size is normal. Thoracic aorta is normal in caliber. No significant atherosclerotic calcifications of the aortic arch. No significant coronary arterial calcifications. Acute pulmonary emboli within the bilateral main pulmonary arteries with extension into the segmental and subsegmental branches of the bilateral lower lobes, as well as the right middle lobe and lingula. Mildly enlarged main pulmonary artery measuring 3.4 cm. Mediastinum and lymph nodes: Small hiatal hernia. No pathologic mediastinal or hilar lymphadenopathy by size criteria. Lungs: No focal consolidation. Dependent atelectasis. Linear bandlike opacification of the lung bases bilaterally, likely subsegmental atelectasis and/or scarring. Trachea: Patent and midline. Mild diffuse peribronchial wall thickening. Pleura: No pleural effusions or pneumothorax Chest wall: Unremarkable. Bones: No acute osseous abnormalities. Upper abdomen: No acute findings in the visualized upper abdomen. No reflux of contrast material into the IVC. IMPRESSION: Acute multifocal pulmonary emboli. Mildly enlarged main pulmonary artery is suggestive of right heart strain. Venous US: Attestation: I have reviewed the pertinent imaging results. Radiologist's impression: TECHNIQUE: Bilateral lower extremity Doppler venous ultrasound examination was performed. Grayscale and color Doppler images were obtained. Spectral analysis performed. COMPARISON: None. FINDINGS: RIGHT LOWER EXTREMITY: Common femoral vein: Fully compressible. No deep vein thrombus. Normal flow and response to augmentation on color Doppler imaging. Superficial femoral vein: Fully compressible. No deep vein thrombus. Normal flow on color Doppler imaging. Deep femoral vein: No deep vein thrombus Popliteal vein: Fully compressible. No deep vein thrombus. Normal flow on color Doppler imaging. Lower calf: The visualized posterior tibial and peroneal veins are fully compressible. No deep vein thrombus. Normal flow and response to augmentation on color Doppler imaging. Superficial veins: The superficial veins, including the greater saphenous vein, remain patent and are fully compressible. Soft tissues: No popliteal fossa fluid collection identified. LEFT LOWER EXTREMITY: Common femoral vein: Fully compressible. No deep vein thrombus. Normal flow and response to augmentation on color Doppler imaging. Superficial femoral vein: Fully compressible. No deep vein thrombus. Normal flow on color Doppler imaging. Deep femoral vein: No deep vein thrombus Popliteal vein: Fully compressible. No deep vein thrombus. Normal flow on color Doppler imaging. Lower calf: The visualized posterior tibial and peroneal veins are fully compressible. No deep vein thrombus. Normal flow and response to augmentation on color Doppler imaging. Superficial veins: The superficial veins, including the greater saphenous vein, remain patent and are fully compressible. Soft tissues: No popliteal fossa fluid collection identified. IMPRESSION: No deep vein thrombus within either lower extremity. ECG Data Attestation: I personally reviewed and interpreted this ECG as follows: Discharge Plan Discharge Clinical Impression: Pulmonary embolism affecting Patient Disposition: Xfer Other Condition: Stable Prescriptions: No Action DHA 200 mg capsule PO [id number] acid-B6 1,000 mg-16.6 mcg-66.6 mcg tablet PO aspirin 81 mg tablet 81 mg PO QDAY magnesium 200 mg tablet 200 mg PO QDAY Probiotic 3 billion cell capsule 3,000 mmu cells PO QDAY Rx Instructions: administer with a meal cholecalciferol (vitamin D3) 10 mcg (400 unit) capsule 10 mcg PO QDAY calcium citrate-vitamin D3 [Citracal Regular] 250 mg-5 mcg (200 unit) tablet 1 tab PO ONCE Stand Alone Forms: [facility] Info Instructions Procedures ABG Interpretation ABG Results: 07/15/25 11:14 VBG pH 7.419 VBG pCO2 37 L VBG pO2 86.6 H VBG HCO3 24
[2025-05-11 12:00] LABS: NT Pro B Type NatriureticPept* 39 pg/mL (See Note)
[2025-05-11 12:05] LABS: PCR FLU A Negative PCR FLU A (Negative); PCR FLU B Negative PCR FLU B (Negative); PCR RSV Negative PCR RSV (Negative); SARS PCR* Negative SARS-CoV-2 (Negative)
--- NOTE | 2025-05-11 12:14 | CRLHL7_ITS ---
For Patients: As a result of the Century Cures Act, medical imaging exams and procedure reports are released immediately into your electronic medical record. You may view this report before your referring provider. If you have questions, please contact your health care provider. INDICATION: Pulmonary embolus. Evaluate for deep vein thrombus. TECHNIQUE: Bilateral lower extremity Doppler venous ultrasound examination was performed. Grayscale and color Doppler images were obtained. Spectral analysis performed. COMPARISON: None. FINDINGS: RIGHT LOWER EXTREMITY: Common femoral vein: Fully compressible. No deep vein thrombus. Normal flow and response to augmentation on color Doppler imaging. Superficial femoral vein: Fully compressible. No deep vein thrombus. Normal flow on color Doppler imaging. Deep femoral vein: No deep vein thrombus Popliteal vein: Fully compressible. No deep vein thrombus. Normal flow on color Doppler imaging. Lower calf: The visualized posterior tibial and peroneal veins are fully compressible. No deep vein thrombus. Normal flow and response to augmentation on color Doppler imaging. Superficial veins: The superficial veins, including the greater saphenous vein, remain patent and are fully compressible. Soft tissues: No popliteal fossa fluid collection identified. LEFT LOWER EXTREMITY: Common femoral vein: Fully compressible. No deep vein thrombus. Normal flow and response to augmentation on color Doppler imaging. Superficial femoral vein: Fully compressible. No deep vein thrombus. Normal flow on color Doppler imaging. Deep femoral vein: No deep vein thrombus Popliteal vein: Fully compressible. No deep vein thrombus. Normal flow on color Doppler imaging. Lower calf: The visualized posterior tibial and peroneal veins are fully compressible. No deep vein thrombus. Normal flow and response to augmentation on color Doppler imaging. Superficial veins: The superficial veins, including the greater saphenous vein, remain patent and are fully compressible. Soft tissues: No popliteal fossa fluid collection identified. IMPRESSION: No deep vein thrombus within either lower extremity. Dictated by Av Soriano MD @ 05/11/2025 1:12:47 PM (Electronically Signed)
[2025-05-11 12:41] LABS: INR 0.93 (0.91-1.10); Prothrombin Time 13.3 Seconds
[2025-05-11] MEDS: HEPARIN 25,000 UNIT/500 ML BAG 30 UNIT IV (12:45)
[2025-05-11] MEDS: HEPARIN 5,000 UNIT/0.5 ML INJ 7500 UNIT IVP (12:47)
[2025-05-11] MEDS: 0.9 % SODIUM CHLORIDE 500 ML 500 ML IV (13:34)
--- NOTE | 2025-05-11 13:49 | PM.OBCN1 ---
OB - CN: HPI Date of Consult Time Seen by Provider: 12:00 Date Seen: 05/11/25 Patient: [facility] Patient Consult date: 05/11/25 Requesting Physician: Melida Bass MD Primary Care Provider: Not a Local Provider Consult Narrative Reason for consult: other (Bilateral pulmonary emboli, 24 1/7 weeks ) Narrative: The patient is a 30 year old G 2 P 1001 at 24 1/7 weeks gestation that presented to the emergency department complaining of acute shortness of breath. She had felt somewhat short of breath intermittently over the last week, and felt worse while working today. She denies chest pain, fevers or chills, cough, or leg swelling or tenderness. She has a history of pulmonary embolism in 2016 or 2017 following breast reduction surgery. Her subsequent thrombophilia workup was negative, and she has no family history of venous thromboembolism. The clot was attributed to immobilization following surgery and because this was thought to be a single provoked event, prophylactic anticoagulation during this was not recommended by [facility] consistent with ACOG recommendations. Her obstetric course has been otherwise uncomplicated. BETTINA is 08/30/2025 based on a certain last menstrual period. Other stable medical issues include depression and pre BMI 33.8kg/m2. History of Present Dating criteria: based on LMP care: none Ultrasounds: normal 1st trimester US and normal mid trimester US (Level two ultrasound normal) History History 2 Elective abortions Para 1 Spontaneous abortions Hx # Term Pregnancies Ectopic pregnancies Hx # Pregnancies Multiple births Number of Living Children 1 Past Pregnancies Del. Date GA/Weeks Outcome Route wt Inf Gender Labor Lgth Anesthesia Location Provider Compli 01/30/13 40 live - full term vaginal delivery 6 lb 7 oz Male [place], [place] Labs Blood type: A (+) positive Rubella: immune RPR/VDLR: nonreactive GBS status: unknown HBsAG: negative Review of Systems Status of ROS: Reports: 10 or more systems reviewed and unremarkable except as noted in History and below Narrative: Anxious PFSH PFSH Medical History Infertility PCOS (polycystic ovarian syndrome) ?E28.2 - Polycystic ovarian syndrome (ICD-10) History of venous thromboembolism ?Z86.718 - Personal history of other venous thrombosis and embolism (ICD-10) Depression ?F32.A - Depression, unspecified (ICD-10) Endometriosis ?N80.9 - Endometriosis, unspecified (ICD-10) Chlamydia ?A74.9 - Chlamydial infection, unspecified (ICD-10) Dyspareunia Ovarian cyst ?N83.209 - Unspecified ovarian cyst, unspecified side (ICD-10) Surgical History History of laparoscopy ?Z98.890 - Other specified postprocedural states (ICD-10) Status post breast reduction ?Z98.890 - Other specified postprocedural states (ICD-10) Family History Other Breast cancer Endometriosis Infertility Social History Smoking Status: Never smoker How often do you have a drink containing alcohol: never AUDIT-C Alcohol total score: 0 Non-prescribed substance use: denies use Meds Home Medications and Allergies Home Medications ?Medication ?Instructions ?Recorded ?Confirmed ?Type arginine 1,000 mg-B12 16.6 tab PO 02/12/25 04/15/25 History mcg-folic acid 66.6 mcg-B6 3.3 mg tablet docosahexaenoic acid 200 mg mg PO 02/12/25 04/15/25 History capsule ( DHA) aspirin 81 mg tablet 81 mg PO QDAY 03/30/25 04/15/25 History calcium 250 mg (as 1 tab PO ONCE 04/15/25 04/15/25 History citrate)-vitamin D3 5 mcg (200 unit) tablet (Citracal Regular) cholecalciferol (vitamin D3) 10 10 mcg PO QDAY 04/15/25 04/15/25 History mcg (400 unit) capsule lactobacillus combination no.4 3 3,000 mmu cells PO QDAY 04/15/25 04/15/25 History billion cell capsule (Probiotic) magnesium 200 mg tablet 200 mg PO QDAY 04/15/25 04/15/25 History Allergies Allergy/AdvReac Type Severity Reaction Status Date / Time house dust mite Allergy Mild Nasal Verified 05/11/25 11:42 Discharge enoxaparin (From Lovenox) Allergy Verified 05/11/25 11:42 tree nuts Allergy Mild hives Uncoded 05/11/25 11:42 OB - H&P: Exam Physical Exam: Vital signs: Temp Pulse Resp BP Pulse Ox O2 Del Method 98.5 F 86 19 108/84 100 Room Air 05/11/25 10:47 05/11/25 13:32 05/11/25 13:32 05/11/25 13:32 05/11/25 13:32 05/11/25 11:35 Constitutional: Constitutional: mild distress Routine Respiratory Exam: Respiratory: Present CTA bilaterally Comments: Slightly labored breathing while talking Routine Cardiovascular Exam: Cardiovascular: RRR Detailed Labor and Delivery Exam: Patient Gravid: Yes (Nontender) Comments: heart tones auscultated at the bedside, 144 beats per minute. Routine Extremities Exam: Extremities: Present normal inspection; Absent calf tenderness or pedal edema OB - Results Labs Labs: Short CBC 05/11/25 Range/Units 11:14 WBC 6.68 (4.50-11.00) K/uL Hgb 11.1 L (12.0-16.0) gm/dL Hct 33.5 (33.0-51.0) % Plt Count 178 (140-440) K/uL BMP 05/11/25 11:14 Sodium 132 L Potassium 3.6 Chloride 106 Carbon Dioxide 23 BUN 4 L Creatinine 0.5 Glucose 106 Calcium 9.2 Cardiac Enzymes 05/11/25 Range/Units 11:14 Troponin I 0.03 (0.01-0.04) ng/mL Liver Function 05/11/25 Range/Units 11:14 Total Bilirubin 0.3 (0.1-1.5) mg/dL Direct Bilirubin 0.0 (0.0-0.5) mg/dL AST 23 (12-35) U/L ALT 11 (4-35) U/L Alkaline Phosphatase 66 (40-150) U/L Albumin 3.5 (3.3-5.0) g/dL Imaging CT - chest: Attestation: I have reviewed the pertinent imaging results. My impression: Bilateral PE. Radiologist's impression: Acute multifocal pulmonary emboli. Mildly enlarged main pulmonary artery is suggestive of right heart strain. Venous Duplex LE: Attestation: I have reviewed the pertinent imaging results. My impression: No evidence of DVT. Radiologist's impression: No deep vein thrombus within either lower extremity. OB - CN: A/P Assessment and Plan (1) Pulmonary embolism affecting : Status: Acute (2) History of venous thromboembolism: Problem details: Pulmonary Embolism after breast reduction surgery Status: Acute Plan I spoke with MAGGY Mcdonald from [facility]. She is not currently a good candidate for outpatient management, given the findings suggestive of right heart strain on imaging. Recommend that the patient be transferred to the [facility] for further evaluation and treatment as she needs cardiac monitoring which cannot be managed here in [place]. Patient will need to be admitted to Internal Medicine, with MAGGY consulting as needed. The patient has a stated allergy to Lovenox, therefore IV heparin drip will be initiated before transfer. Total Time Spent Total time spent: 45 minutes
== END 2025-05-11 18:24 | disposition other institution (70) ==
PROVIDERS: Emergency Provider Family Medicine
DX: I26.99 Other pulmonary embolism without acute cor pulmonale (principal); Z3A.24 24 weeks gestation of pregnancy
CPT/HCPCS: 36415; 71275; 80048; 80076; 82803; 83605; 83735; 83880; 84443; 84484; 85025; 85610; 85730; 86140; 87637; 93005; 93970; 94761; 99285; J1644; J7030; Q9967

== ENCOUNTER 2025-05-11 18:08 | Outpatient (CLI) | payer BC, SELFPAY | END 2025-05-11 18:09 | disposition home or self-care (01) | PROVIDERS: Visit Provider Family Medicine | DX: I26.99 Other pulmonary embolism without acute cor pulmonale (principal) | CPT/HCPCS: A0425; A0434 ==